=== PATIENT | male | born 1945 | race Caucasian/White ===

== ENCOUNTER 2016-09-05 14:31 | Emergency (ER) | payer OTHER ==
[~2016-09-05] VITALS: Ht 185.4 cm; Wt 41.6 kg
[~2016-09-05 14:31] MED LIST: ALBUAER19 INH; PRED1SUS3 OPL
[2016-09-05 14:37] VITALS: TEMP 36.3; Ht 185.4 cm; Wt 41.6 kg
[2016-09-05] MEDS ORDERED: SULFAMETHOXAZOLE/TRIMETHOPRIM DS 800/160MG TAB PO ONE (16:45)
[2016-09-05] MEDS ORDERED: SULF800T23 PO (17:48)
--- NOTE | 2016-09-05 17:48 | EMERGENCY ROOM VISIT NOTE ---
ED Visit Note First contact with patient: 15:46 I did evaluate and examine this patient myself. I did guide management for the patient. I agree with the PA's assessment as discussed. Please see the PAs dictation for further details. His An was replaced.
[2016-09-05 17:58] VITALS: BP 138/86; PULSE 91; O2SAT 95
[2016-09-05 17:58] LABS: URINE APPEARANCE CLOUDY (CLEAR); URINE BILIRUBIN NEG (NEG); URINE COLOR YELLOW; URINE EPITHELIAL CELL AUTO 0-5 /lpf (0-5); URINE NITRITE POS (NEG); URINE PH 6.5 (4.5-7.5); URINE SPECIFIC GRAVITY 1.008 (1.000-1.030); UROBILINOGEN NEG (NEG); ZZURINE CULT IF INDIC CATH YES
[2016-09-05 18:02] LABS: MANUAL MICROSCOPIC REQUIRED? NO; REVIEW REQ? NO
--- NOTE | 2016-09-05 19:49 | EMERGENCY ROOM VISIT NOTE ---
History First contact with patient: 16:35 Chief Complaint: URINARY SYMPTOMS Stated Complaint: UTI W/JEAN BAPTISTE CATHETER/CATHETER IS CLOGGED Nursing Triage Summary: UTI, has jean baptiste catheter due to prostate problems. States catheter is clogged due to UTI. No output. History of Present Illness The patient is a 71 year old male who presents to the Emergency Room with complaints of a blocked Jean Baptiste catheter. The patient reports a long-standing history of prostate issues, and this catheter was replaced about 3 weeks ago by the [facility]. The patient states last night he started having difficulty with drainage, and is now concerned that he has a UTI. He has not had output for the past several hours. The patient does have some suprapubic abdominal discomfort, but no other symptoms. He does not have fever or back pain. He rates his current discomfort an 8/10. Review of Systems More than 10 systems were reviewed and otherwise negative with the exception of history of present illness. Past Medical/Surgical History Medical Problems: (1) Benign hypertension (2) COPD (chronic obstructive pulmonary disease) (3) Multiple orthopedic surgeries (4) Pneumonia (5) Syncope (6) Syncope Family History None provided Social History Smoking Status: Current Every Day Smoker Alcohol Use: occasionally Marital Status: single Housing Status: lives alone Occupation Status: retired Current/Historical Medications Scheduled Aspirin (Aspirin Low Dose), 81 MG PO QD@1200 Cholecalciferol (Vitamin D 1000 Unit), 1,000 INTER.UNIT PO QD@1200 Lisinopril (Lisinopril), 5 MG PO QD@1200 Sulfamethoxazole-Trimethoprim (Bactrim Ds 800MG/160MG), 1 TAB PO BID Tiotropium [place] (Spiriva Handihaler), 1 CAP INH QAM Scheduled PRN Albuterol Hfa (Ventolin Hfa), 2 PUFFS INH QID PRN for Wheezing Allergies Coded Allergies: No Known Allergies (Verified , 08/05/16) Physical Exam Vital Signs Date Time Temp Pulse Resp B/P Pulse Ox O2 Delivery O2 Flow Rate FiO2 09/05/16 17:58 91 18 138/86 95 Room Air 09/05/16 17:15 87 16 144/96 96 Room Air 09/05/16 14:37 36.3 103 18 169/104 96 Room Air Pain Rating (0-10): 0 Physical Exam VITALS: Vitals are noted on the nurse's note and reviewed by myself. Vital signs stable. GENERAL: Well-developed, well-nourished, white male, who is in no acute distress and resting comfortably. Patient is cooperative with the examination. HEAD: Normocephalic atraumatic. HEART: Regular rate and rhythm without murmurs gallops or rubs. LUNGS: Clear to auscultation bilaterally without wheezes, rales or rhonchi. No retractions or accessory muscle use. ABDOMEN: Positive normal bowel sounds x 4. Soft with suprapubic tenderness. No rebound or guarding. No CVA tenderness. Medical Decision & Procedures Laboratory Results Test 09/05/16 17:15 Urine Color YELLOW Urine Appearance CLOUDY (CLEAR) Urine pH 6.5 (4.5-7.5) Urine Specific [place] 1.008 (1.000-1.030) Urine Protein NEG (NEG) Urine Glucose (UA) NEG (NEG) Urine Ketones NEG (NEG) Urine Occult Blood 3+ (NEG) Urine Nitrite POS (NEG) Urine Bilirubin NEG (NEG) Urine Urobilinogen NEG (NEG) Urine Leukocyte Esterase LARGE (NEG) Urine WBC (Auto) >30 /hpf (0-5) Urine RBC (Auto) >30 /hpf (0-4) Urine Hyaline Casts (Auto) 5-10 /lpf (0-5) Urine Epithelial Cells (Auto) 0-5 /lpf (0-5) Urine Bacteria (Auto) NEG (NEG) Medications Administered Medications (Trade) Dose Ordered Sig/Emy Route Start Time Stop Time Status Last Admin Dose Admin Trimethoprim/ Sulfamethoxazole (Septra Ds 800/ 160MG Tab) 1 tab NOW ONCE PO 09/05/16 16:45 09/05/16 16:46 DC 09/05/16 17:58 1 TAB ED Course Physical exam and history were performed. Nursing notes and EMR were reviewed. Patient appears to have difficulty with his catheter. The catheter has been placed for 3 weeks, and it is now occluded. I discussed options of care with the patient. We elected to perform a bladder scan, which showed greater than 200 mL of urine. The catheter was removed and replaced by nursing, and the patient tolerated this well. He had notable urine output after removal, and almost complete resolution of his pain. The patient was given Bactrim by mouth here in the department. I discussed the case with my attending physician, Dr. Jenkins, who also evaluated the patient. We feel he is stable for discharge home. I will continue the patient on Bactrim pending urine culture. Recommended the patient contact the [facility] to arrange a follow-up appointment. The patient was otherwise invited back to the ER with any new, worsening, or concerning symptoms. He voiced understanding and was pleased with plan of care. The chart was completed utilizing [employer] Speech Voice Recognition Software. Grammatical errors, random word insertions, pronoun errors, and incomplete sentences are an occasional consequence of this system due to software limitations, ambient noise, and hardware issues. Any formal questions or concerns about the content, text, or information contained within the body of this dictation should be directly addressed to the provider for clarification. . Medical Decision Differential diagnosis includes, but is not limited to: UTI, pyelonephritis, catheter malfunction, prostatitis, and others Impression Primary Impression: Urinary tract infection Additional Impression: Malfunction of indwelling urinary catheter Departure Information Dispostion Home / Self-Care Condition GOOD Prescriptions Sulfamethoxazole-Trimethoprim (Bactrim Ds 800MG/160MG) 1 Tab Tab 1 TAB PO BID for 10 Days, #20 TAB Prov: Gus Pickett PA-C 09/05/16 Forms HOME CARE DOCUMENTATION FORM, IMPORTANT VISIT INFORMATION Patient Instructions [facility] Additional Instructions You were seen and evaluated today on an emergency basis only. This is not a substitute for, or an effort to provide, complete comprehensive medical care. It is not possible to recognize and treat all injuries or illnesses in a single emergency department visit. For this reason it is recommended that you followup with the [facility] next week for ongoing care and evaluation. Trimethoprim-Sulfamethoxazole(Bactrim DS): Take one pill twice daily for 10 days for your urine infection. All antibiotics can cause diarrhea. If this occurs and you feel worse or it does not resolve in 1-2 days follow up with your doctor or return to the Emergency Department as this could be signs of serious underlying problems. Any medication can cause an allergic reaction, stop the pills immediately and return to the ER for rash, hives, breathing difficulties, or swelling. You are welcome to return to the emergency department anytime with new, worsening, or concerning symptoms. Problem Qualifiers
[2017-04-01] MEDS ORDERED: ASPI1TAB48 PO (03:07)
== END 2016-09-05 18:14 | disposition home or self-care (01) ==
LOC: C.EDB 14:33 → C.EDC 18:14
DX: N39.0 Urinary tract infection, site not specified (principal); T83.098A Other mechanical complication of other urinary catheter, initial encounter; X58.XXXA Exposure to other specified factors, initial encounter; I10 Essential (primary) hypertension; J44.9 Chronic obstructive pulmonary disease, unspecified; F17.200 Nicotine dependence, unspecified, uncomplicated; Z79.82 Long term (current) use of aspirin

== ENCOUNTER 2016-09-09 03:36 | Emergency (ER) | payer OTHER ==
[~2016-09-09] VITALS: Ht 185.4 cm; Wt 45.5 kg
[~2016-09-09 03:36] MED LIST changes: -ALBUAER19 INH; -PRED1SUS3 OPL; +SULF800T23 PO
[2016-09-09 03:41] VITALS: Ht 185.4 cm; Wt 45.5 kg
--- NOTE | 2016-09-09 03:56 | EMERGENCY ROOM VISIT NOTE ---
History Report prepared by Lia: Pamella Estrada Under the Supervision of: Dr. Mckay Leo M.D. First contact with patient: 03:48 Chief Complaint: CATHETER REPLACEMENT Stated Complaint: UTI - JEAN BAPTISTE CATH WON'T DRAIN History of Present Illness The patient is a 71 year old male who presents to the Emergency Room with complaints of Jean Baptiste catheter malfunction today. The patient currently complains of lower abdominal discomfort due to his bladder being full. The patient was in the ED a few days ago with similar symptoms and had his Jean Baptiste changed during his visit. He was put on Bactrim at that time but he states that it has not been helping the catheter clogging.He follows up with urology at the [place]. Source of History: patient Onset: today Position: other () Quality: other (urinary retention) Timing: constant Associated Symptoms: + abdominal pain Review of Systems See HPI for pertinent positives & negatives. A total of 10 systems reviewed and were otherwise negative. Past Medical & Surgical Medical Problems: (1) Benign hypertension (2) COPD (chronic obstructive pulmonary disease) (3) Multiple orthopedic surgeries (4) Pneumonia (5) Syncope (6) Syncope Family History None provided Social History Smoking Status: Current Every Day Smoker Alcohol Use: occasionally Marital Status: single Housing Status: lives alone Occupation Status: retired Current/Historical Medications Scheduled Aspirin (Aspirin Low Dose), 81 MG PO QD@1200 Cholecalciferol (Vitamin D 1000 Unit), 1,000 INTER.UNIT PO QD@1200 Ciprofloxacin Hcl (Cipro), 1 TAB PO BID Lisinopril (Lisinopril), 5 MG PO QD@1200 Sulfamethoxazole-Trimethoprim (Bactrim Ds 800MG/160MG), 1 TAB PO BID Tiotropium [place] (Spiriva Handihaler), 1 CAP INH QAM Scheduled PRN Albuterol Hfa (Ventolin Hfa), 2 PUFFS INH QID PRN for Wheezing Allergies Coded Allergies: No Known Allergies (Verified , 08/05/16) Physical Exam Vital Signs Date Time Temp Pulse Resp B/P Pulse Ox O2 Delivery O2 Flow Rate FiO2 09/09/16 04:35 85 18 136/89 95 09/09/16 03:41 99 20 159/78 94 Room Air Physical Exam GENERAL: Patient is a healthy-appearing well-nourished 71 year old male HEAD: Normocephalic atraumatic EYES: Ocular movements intact pupils equal and react to light OROPHARYNX mucous membranes are moist no exudates present no erythema or edema present NECK: Supple no nuchal rigidity CHEST: Good equal expansion LUNGS: Clear and equal to auscultation CARDIAC: Normal S1 and S2 ABDOMEN: Soft, tender to the suprapubic area, no guarding BACK: No CVA tenderness EXTREMITIES: No pain upon palpation normal muscle strength in all groups no clubbing cyanosis or edema NEURO: Patient is following commands is answering questions appropriately. Alert and oriented x3 Cranial Nerves 2-12 grossly intact Medical Decision & Procedures Laboratory Results Test 09/09/16 04:10 Urine Color YELLOW Urine Appearance CLOUDY (CLEAR) Urine pH 6.5 (4.5-7.5) Urine Specific [place] 1.005 (1.000-1.030) Urine Protein NEG (NEG) Urine Glucose (UA) NEG (NEG) Urine Ketones NEG (NEG) Urine Occult Blood NEG (NEG) Urine Nitrite NEG (NEG) Urine Bilirubin NEG (NEG) Urine Urobilinogen NEG (NEG) Urine Leukocyte Esterase LARGE (NEG) Urine WBC (Auto) >30 /hpf (0-5) Urine RBC (Auto) 0-4 /hpf (0-4) Urine Hyaline Casts (Auto) 1-5 /lpf (0-5) Urine Epithelial Cells (Auto) >30 /lpf (0-5) Urine Bacteria (Auto) NEG (NEG) Urine Renal Epithelial Cells /lpf (0-5) Labs reviewed by ED physician. Medications Administered Medications (Trade) Dose Ordered Sig/Emy Route Start Time Stop Time Status Last Admin Dose Admin Ciprofloxacin (Cipro Tab) 500 mg NOW STAT PO 09/09/16 04:10 09/09/16 04:11 DC 09/09/16 04:18 500 MG ED Course 0405: Past medical records reviewed. The patient was evaluated in room B3. A complete history and physical examination was performed. 0410: Ordered Cipro Tab 500 mg PO. 0420: Upon reexamination the patient is feeling much better. I discussed results and treatment plan with the patient. He verbalizes agreement and understanding. The patient is ready for discharge. Medical Decision This is a 71-year-old male who presents emergency department complaining of blocked Jean Baptiste. The patient is following up with urology in [place]. He also reports that Cipro is a better medication for him therefore the patient was placed on Cipro. His Jean Baptiste catheter was changed out and he had good drainage of urine. Patient was in agreement with the treatment plan. Impression Primary Impression: Complication of catheter Scribe Attestation The scribe's documentation has been prepared under my direction and personally reviewed by me in its entirety. I confirm that the note above accurately reflects all work, treatment, procedures, and medical decision making performed by me. Departure Information Dispostion Home / Self-Care Prescriptions Ciprofloxacin Hcl (CIPRO) 500 Mg Tab 1 TAB PO BID for 14 Days, #28 TAB Prov: Mckay Leo MD 09/09/16 Referrals Tyrone Kennedy D.O. (PCP) Patient Instructions ED Catheter Care Jean Baptiste, ED Retention Urinary Male, My [facility] Additional Instructions Follow up with urology Culture results are usually available in approx 48 hours You have been examined and treated today on an emergency basis only. This is not a substitute for, or an effort to provide, complete comprehensive medical care. It is impossible to recognize and treat all injuries or illnesses in a single emergency department visit. It is therefore important that you follow up closely with Dr Kennedy. Call as soon as possible for an appointment. Thank you for your time and consideration. I look forward to speaking with you again soon. Please don't hesitate to call us if you have any questions. Problem Qualifiers Primary Impression: Complication of catheter Encounter type: sequela Qualified Codes: T85.9XXS - Unspecified complication of internal prosthetic device, implant and graft, sequela
[2016-09-09] MEDS ORDERED: CIPROFLOXACIN 500 MG TAB PO STA (04:10)
[2016-09-09] MEDS ORDERED: CIPR-255 PO (04:11)
[2016-09-09 04:35] VITALS: BP 136/89; PULSE 85; O2SAT 95
[2016-09-09 04:35] LABS: URINE APPEARANCE CLOUDY (CLEAR); URINE BILIRUBIN NEG (NEG); URINE COLOR YELLOW; URINE EPITHELIAL CELL AUTO >30 /lpf (0-5); URINE NITRITE NEG (NEG); URINE PH 6.5 (4.5-7.5); URINE SPECIFIC GRAVITY 1.005 (1.000-1.030); UROBILINOGEN NEG (NEG)
[2016-09-09 04:36] LABS: MANUAL MICROSCOPIC REQUIRED? NO; REVIEW REQ? YES
[2017-04-01] MEDS ORDERED: ASPI1TAB48 PO (03:07)
== END 2016-09-09 04:36 | disposition home or self-care (01) ==
LOC: C.EDB 03:37
DX: T83.091A Other mechanical complication of indwelling urethral catheter, initial encounter (principal); Y84.6 Urinary catheterization as the cause of abnormal reaction of the patient, or of later complication, without mention of misadventure at the time of the procedure; I10 Essential (primary) hypertension; J44.9 Chronic obstructive pulmonary disease, unspecified; F17.210 Nicotine dependence, cigarettes, uncomplicated; Z79.2 Long term (current) use of antibiotics; Z79.82 Long term (current) use of aspirin; Z79.899 Other long term (current) drug therapy

== ENCOUNTER 2016-09-25 23:47 | Emergency (ER) | payer OTHER ==
[~2016-09-25] VITALS: Ht 185.4 cm; Wt 50.7 kg
[~2016-09-25 23:47] MED LIST changes: +CIPR-255 PO; -SULF800T23 PO
[2016-09-25 23:49] VITALS: TEMP 36.3; Ht 185.4 cm; Wt 50.7 kg
--- NOTE | 2016-09-26 00:17 | EMERGENCY ROOM VISIT NOTE ---
History Report prepared by Lia: Ricardo Lloyd Under the Supervision of: Dr. Jill Garcia D.O. First contact with patient: 23:53 Chief Complaint: CATHETER REPLACEMENT Stated Complaint: JEAN BAPTISTE CATH CLOGGED History of Present Illness The patient is a 71 year old male who presents to the Emergency Room with complaints of a blocked catheter since about 1500 today. The patient states he has a history of blocked catheters. The patient states that the catheter has been put into place due to his prostate. He states that he has not felt sick recently, and he is not currently on antibiotics. The patient states that he has had infections in the past. Source of History: patient Onset: 1500 Position: other (catheter) Quality: other (blocked) Review of Systems See HPI for pertinent positives & negatives. A total of 6 systems reviewed and were otherwise negative. Past Medical & Surgical Medical Problems: (1) Benign hypertension (2) COPD (chronic obstructive pulmonary disease) (3) Multiple orthopedic surgeries (4) Pneumonia (5) Syncope (6) Syncope Family History None provided Social History Smoking Status: Current Every Day Smoker Alcohol Use: occasionally Marital Status: single Housing Status: lives alone Occupation Status: retired Current/Historical Medications Scheduled Aspirin (Aspirin Low Dose), 81 MG PO QD@1200 Cholecalciferol (Vitamin D 1000 Unit), 1,000 INTER.UNIT PO QD@1200 Ciprofloxacin Hcl (Cipro), 1 TAB PO BID Lisinopril (Lisinopril), 5 MG PO QD@1200 Sulfamethoxazole-Trimethoprim (Bactrim Ds 800MG/160MG), 1 TAB PO BID Tiotropium [place] (Spiriva Handihaler), 1 CAP INH QAM Scheduled PRN Albuterol Hfa (Ventolin Hfa), 2 PUFFS INH QID PRN for Wheezing Allergies Coded Allergies: No Known Allergies (Verified , 08/05/16) Physical Exam Vital Signs Date Time Temp Pulse Resp B/P Pulse Ox O2 Delivery O2 Flow Rate FiO2 09/26/16 00:47 71 18 138/86 93 Room Air 09/25/16 23:49 36.3 103 20 182/97 94 Physical Exam Neck: Supple; no cervical lymphadenopathy Heart: Regular rate and rhythm. There is a normal S1 and S2 with no murmurs, clicks, or gallops appreciated. Lungs: Diminished breath sounds in all lung ocasio Abdomen: Normal bowel sounds. There are no palpable pulsatile masses or hepatosplenomegaly. There is no guarding, rigidity, or rebound noted. Extremities: No evidence of cyanosis, clubbing, or edema. There are easily palpable peripheral pulses. Skin: warm and dry with good turgor and no rashes. Medical Decision & Procedures Laboratory Results Test 09/26/16 00:15 Urine Color YELLOW Urine Appearance CLOUDY (CLEAR) Urine pH 8.0 (4.5-7.5) Urine Specific [place] 1.008 (1.000-1.030) Urine Protein NEG (NEG) Urine Glucose (UA) NEG (NEG) Urine Ketones NEG (NEG) Urine Occult Blood 2+ (NEG) Urine Nitrite NEG (NEG) Urine Bilirubin NEG (NEG) Urine Urobilinogen NEG (NEG) Urine Leukocyte Esterase LARGE (NEG) Urine WBC (Auto) >30 /hpf (0-5) Urine RBC (Auto) >30 /hpf (0-4) Urine Hyaline Casts (Auto) 10-30 /lpf (0-5) Urine Epithelial Cells (Auto) >30 /lpf (0-5) Urine Bacteria (Auto) NEG (NEG) Urine Renal Epithelial Cells /lpf (0-5) Laboratory results per my review. Medications Administered Medications (Trade) Dose Ordered Sig/Emy Route Start Time Stop Time Status Last Admin Dose Admin Trimethoprim/ Sulfamethoxazole (Septra Ds 800/ 160MG Tab) 1 tab NOW STAT PO 09/26/16 00:46 09/26/16 00:47 DC 09/26/16 00:46 1 TAB Procedure Septra Ds 800/ 160mg Tab ED Course 2353: Past medical records reviewed. The patient was evaluated in room C7. A complete history and physical exam was performed. Multiple previous urinary cultures were reviewed. Nursing staff was able to change the patient's Jean Baptiste catheter and obtain a urinalysis. This appeared to be infected. 0046: Septra Ds 800/ 160mg Tab 1 tab PO 0113: Upon reevaluation, he was feeling better. I discussed findings and results with him. He verbalized agreement of the treatment plan. He was discharged home. Medical Decision This is a 71-year-old male patient who presents to the emergency department with a blocked Jean Baptiste catheter. Labs: urinalysis showed cloudy yellow urine, 2+ blood, greater than 3 white blood cell count, greater than 30 red blood cell count, large leukocyte esterase The patient has urinary retention secondary to prostate hypertrophy. He has had multiple previous obstructions to his urinary catheter with associated UTI. Urinalysis appears infected and the urine will go for culture. A new Jean Baptiste catheter was placed. The patient will start taking Bactrim Impression Primary Impression: Complication, blocked Jean Baptiste catheter Additional Impression: Urinary tract infection Scribe Attestation The scribe's documentation has been prepared under my direction and personally reviewed by me in its entirety. I confirm that the note above accurately reflects all work, treatment, procedures, and medical decision making performed by me. Departure Information Dispostion Home / Self-Care Prescriptions Sulfamethoxazole-Trimethoprim (Bactrim Ds 800MG/160MG) 1 Tab Tab 1 TAB PO BID, #20 TAB Prov: Jill Garcia D.O. 09/26/16 Referrals Tyrone Kennedy D.O. (PCP) Forms HOME CARE DOCUMENTATION FORM, IMPORTANT VISIT INFORMATION Patient Instructions My [facility] Additional Instructions Rest. Take plenty of clear liquids Bactrim - 1 tab. every 12 hours Problem Qualifiers
[2016-09-26 00:34] LABS: URINE APPEARANCE CLOUDY (CLEAR); URINE BILIRUBIN NEG (NEG); URINE COLOR YELLOW; URINE EPITHELIAL CELL AUTO >30 /lpf (0-5); URINE NITRITE NEG (NEG); URINE SPECIFIC GRAVITY 1.008 (1.000-1.030); UROBILINOGEN NEG (NEG)
[2016-09-26 00:43] LABS: MANUAL MICROSCOPIC REQUIRED? NO; REVIEW REQ? YES
[2016-09-26 00:44] LABS: SULFASALICYLIC ACID NEG (NEG)
[2016-09-26] MEDS ORDERED: SULFAMETHOXAZOLE/TRIMETHOPRIM DS 800/160MG TAB PO STA (00:46)
[2016-09-26 00:47] VITALS: BP 138/86; PULSE 71; O2SAT 93
[2016-09-26] MEDS ORDERED: SULF800T23 PO (01:05)
[2017-04-01] MEDS ORDERED: ASPI1TAB48 PO (03:07)
== END 2016-09-26 01:10 | disposition home or self-care (01) ==
LOC: C.EDB 23:48 → C.EDC 09-26 01:10
DX: T83.021A Displacement of indwelling urethral catheter, initial encounter (principal); X58.XXXA Exposure to other specified factors, initial encounter; N40.1 Benign prostatic hyperplasia with lower urinary tract symptoms; R33.8 Other retention of urine; N39.0 Urinary tract infection, site not specified; I10 Essential (primary) hypertension; J44.9 Chronic obstructive pulmonary disease, unspecified; F17.200 Nicotine dependence, unspecified, uncomplicated; Z79.82 Long term (current) use of aspirin; Z79.899 Other long term (current) drug therapy

== ENCOUNTER 2016-10-27 11:30 | Emergency (ER) | payer OTHER ==
[~2016-10-27] VITALS: Ht 185.4 cm; Wt 49.1 kg
[2016-10-27 11:37] VITALS: TEMP 36.3; Ht 185.4 cm; Wt 49.1 kg
[2016-10-27] MEDS ORDERED: ALBUTEROL HFA 8 GM INHALER INH ONE (12:00)
[2016-10-27] MEDS ORDERED: NITR100C6 PO (12:02)
[2016-10-27 13:06] VITALS: BP 138/91; PULSE 89; O2SAT 94
--- NOTE | 2016-10-27 14:40 | EMERGENCY ROOM VISIT NOTE ---
History Report prepared by Lia: Fatmata Mitchell Under the Supervision of: Dr. Jill Garcia D.O. First contact with patient: 11:43 Chief Complaint: UNABLE TO VOID Stated Complaint: JEAN BAPTISTE CATH,WON'T DRAIN Nursing Triage Summary: Pt presents with indwelling jean baptiste that he states has been in for a couple weeks. States last drained collection bag at 1600 yesterday, has not drained much since then. History of Present Illness The patient is a 71 year old male who presents to the Emergency Room with complaints of being unable to void. He has a catheter in place for a prostate problem. He believes that it has become blocked. He has been on Macrobid for a couple weeks for a long-term infection. He is also experiencing some SOB from being unable to void. He states that he needs a refill on his albuterol inhaler. Source of History: patient Position: other (jean baptiste catheter) Quality: other (blocked) Associated Symptoms: + SOB Review of Systems Jean Baptiste catheter blocked. The patient developed hematuria yesterday. He has had previous episodes of hematuria and is scheduled for a cystoscopy with his urologist next week. Past Medical & Surgical Medical Problems: (1) Benign hypertension (2) COPD (chronic obstructive pulmonary disease) (3) Multiple orthopedic surgeries (4) Pneumonia (5) Syncope (6) Syncope Family History None provided Social History Smoking Status: Current Every Day Smoker Alcohol Use: occasionally Marital Status: single Housing Status: lives alone Occupation Status: retired Current/Historical Medications Scheduled Aspirin (Aspirin Low Dose), 81 MG PO QD@1200 Cholecalciferol (Vitamin D 1000 Unit), 1,000 INTER.UNIT PO QD@1200 Lisinopril (Lisinopril), 5 MG PO QD@1200 Nitrofurantoin Monohyd Macro (Nitrofurantoin Monohydrat), 1 CAP PO BID Tiotropium [place] (Spiriva Handihaler), 1 CAP INH QAM Scheduled PRN Albuterol Hfa (Ventolin Hfa), 2 PUFFS INH QID PRN for Wheezing Allergies Coded Allergies: No Known Allergies (Verified , 10/27/16) Physical Exam Vital Signs Date Time Temp Pulse Resp B/P Pulse Ox O2 Delivery O2 Flow Rate FiO2 10/27/16 13:06 89 16 138/91 94 10/27/16 11:37 36.3 103 18 142/91 93 Room Air Physical Exam Gen.: The patient appears slightly tachypneic as he is having moderate suprapubic abdominal pain from bladder distention. Heart: Regular rate and rhythm with no murmurs Lungs: Diminished breath sounds in all lung ocasio ABDOMEN: distended and tender to touch. Medical Decision & Procedures Medications Administered Medications (Trade) Dose Ordered Sig/Emy Route Start Time Stop Time Status Last Admin Dose Admin Albuterol (Ventolin Hfa Inhaler) 2 puffs NOW ONCE INH 10/27/16 12:00 10/27/16 12:01 DC 10/27/16 12:10 2 PUFFS Procedure Medications: Albuterol inhaler to go ED Course 1144: The patient was evaluated in room B10. Nursing staff did a bladder scan. Nursing staff replaced the Jean Baptiste catheter. He asked for an albuterol inhaler because he is running out and he will not be able to obtain one from the [place] until next week. 1212: I reevaluated the patient. The nurses put the new catheter in and got 800 ml of bloody urine out. They will try to irrigate the catheter to get the clots and blood out. He reports he frequently has bloody urine and this episode started yesterday. He is scheduled to have a cystoscopy in 1 week with urology. 1237: I reevaluated the patient. Irrigation of the catheter has made the urine more clear. I discussed the results and treatment plan with him. He will be discharged home. He is to continue the Macrobid. He was told to return to the emergency department if symptoms worsen or the catheter becomes blocked again. Medical Decision This is a 71-year-old male patient with history of prostate enlargement with an indwelling Jean Baptiste catheter. He presents here today with blockage to the catheter and hematuria. The patient has been on Macrobid for the past couple of weeks for urinary tract infection. He is scheduled to have cystoscopy next week with his urologist at the [place]. Impression Primary Impression: Hematuria Additional Impression: Complication, blocked Jean Baptiste catheter Scribe Attestation The scribe's documentation has been prepared under my direction and personally reviewed by me in its entirety. I confirm that the note above accurately reflects all work, treatment, procedures, and medical decision making performed by me. Departure Information Dispostion Home / Self-Care Referrals Tyrone Kennedy D.O. (PCP) Forms HOME CARE DOCUMENTATION FORM, IMPORTANT VISIT INFORMATION, WORK / SCHOOL INSTRUCTIONS Patient Instructions My [facility] Additional Instructions Follow up with your Urologist for cystoscopy Return to the ER if catheter becomes blocked again. Problem Qualifiers
[2017-04-01] MEDS ORDERED: ASPI1TAB48 PO (03:07)
== END 2016-10-27 13:08 | disposition home or self-care (01) ==
LOC: C.EDB 11:31
DX: T83.091A Other mechanical complication of indwelling urethral catheter, initial encounter (principal); X58.XXXA Exposure to other specified factors, initial encounter; R31.9 Hematuria, unspecified; I10 Essential (primary) hypertension; J44.9 Chronic obstructive pulmonary disease, unspecified; F17.200 Nicotine dependence, unspecified, uncomplicated; Z79.82 Long term (current) use of aspirin; Z79.899 Other long term (current) drug therapy

== ENCOUNTER 2016-12-02 10:08 | Emergency (ER) | payer OTHER ==
[~2016-12-02] VITALS: Ht 185.4 cm; Wt 50.5 kg
[~2016-12-02 10:08] MED LIST changes: -CIPR-255 PO; +NITR100C6 PO
[2016-12-02 10:12] VITALS: TEMP 36.8; Ht 185.4 cm; Wt 50.5 kg
[2016-12-02] MEDS ORDERED: ALBUTEROL HFA 8 GM INHALER INH STA (10:22)
--- NOTE | 2016-12-02 10:29 | EMERGENCY ROOM VISIT NOTE ---
History Report prepared by Lia: Pamella Estrada Under the Supervision of: Dr. Rc Marino M.D. First contact with patient: 10:18 Chief Complaint: OTHER COMPLAINT Stated Complaint: JEAN BAPTISTE CATHETER CLOGGED History of Present Illness The patient is a 71 year old male who presents to the Emergency Room with complaints of a Jean Baptiste catheter malfunction. The patient has had Jean Baptiste catheters placed on and off for the past year and a half due to prostate issues. Last night, the patient emptied his leg bag at around 2100. Since then, he has had only a small amount of drainage from the catheter. Usually, he would have much more urine in the bag. He has been drinking fluids. Denies back pain. He does report some breathing difficulties which is secondary to COPD. Source of History: patient Onset: 2100 last night Position: other () Quality: other (Jean Baptiste malfunction) Timing: constant Note: Other symptoms: breathing difficulties Review of Systems All systems have been listed, reviewed, and are negative other than those previously mentioned. Please see Additional Medical History Sheet. Past Medical & Surgical Medical Problems: (1) Benign hypertension (2) COPD (chronic obstructive pulmonary disease) (3) Multiple orthopedic surgeries (4) Pneumonia (5) Syncope (6) Syncope Family History None provided Social History Smoking Status: Current Every Day Smoker Alcohol Use: occasionally Marital Status: single Housing Status: lives alone Occupation Status: retired Current/Historical Medications Scheduled Aspirin (Aspirin Low Dose), 81 MG PO QD@1200 Cholecalciferol (Vitamin D 1000 Unit), 1,000 INTER.UNIT PO QD@1200 Lisinopril (Lisinopril), 5 MG PO QD@1200 Nitrofurantoin Monohyd Macro (Nitrofurantoin Monohydrat), 1 CAP PO HS Sulfa/Trimethoprim (Bactrim Ds 800MG/160MG), 1 TAB PO BID Tiotropium [place] (Spiriva Handihaler), 1 CAP INH QAM Scheduled PRN Albuterol Hfa (Ventolin Hfa), 2 PUFFS INH QID PRN for Wheezing Allergies Coded Allergies: No Known Allergies (Verified , 12/02/16) Physical Exam Vital Signs Date Time Temp Pulse Resp B/P Pulse Ox O2 Delivery O2 Flow Rate FiO2 12/02/16 13:30 89 20 123/88 94 12/02/16 12:09 86 20 155/98 95 Room Air 12/02/16 10:42 98 12/02/16 10:35 96 Room Air 12/02/16 10:12 36.8 85 18 169/91 95 Room Air Physical Exam GENERAL: Patient awake, alert, oriented x 3. Patient follows commands. Patient does not appear toxic. Patient is adequately hydrated and well- nourished. SKIN: No erythema, pallor, cyanosis or rash HEENT: Normal head, pupils equal, reactive to light and accommodation. Ears normal. LUNGS: Clear to auscultation. No wheezes, no rales, no rhonchi. Patient has some labored breathing. HEART: No murmurs. No gallops. No rubs ABDOMEN: Large right inguinal hernia. No masses, no rebound, no hepatomegaly or splenomegaly. : Catheter appears to be in place. EXTREMITIES: No signs of trauma. No pedal or pretibial edema. No calf or thigh tenderness. NEUROLOGIC: Cranial nerves II-XII within normal limits. No gross motor sensory function deficits. Medical Decision & Procedures Laboratory Results 12/02/16 10:40 12/02/16 10:40 Test 12/02/16 10:40 12/02/16 11:55 Red Blood Count 4.76 M/uL (4.7-6.1) Mean Corpuscular Volume 92.2 fL (80-100) Mean Corpuscular Hemoglobin 30.0 pg (25-34) Mean Corpuscular Hemoglobin Concent 32.6 g/dl (32-36) RDW Standard Deviation 47.3 fL (36.4-46.3) RDW Coefficient of Variation 13.9 % (11.5-14.5) Mean Platelet Volume 9.5 fL (7.4-10.4) Anion Gap 4.0 mmol/L (3-11) Est Creatinine Clear Calc Drug Dose 58.6 ml/min Estimated GFR () 103.0 Estimated GFR (Non- 88.9 BUN/Creatinine Ratio 16.9 (10-20) Calcium Level 8.7 mg/dl (8.5-10.1) Urine Color DK YELLOW Urine Appearance CLEAR (CLEAR) Urine pH 7.0 (4.5-7.5) Urine Specific [place] 1.015 (1.000-1.030) Urine Protein NEG (NEG) Urine Glucose (UA) NEG (NEG) Urine Ketones NEG (NEG) Urine Occult Blood 3+ (NEG) Urine Nitrite NEG (NEG) Urine Bilirubin NEG (NEG) Urine Urobilinogen NEG (NEG) Urine Leukocyte Esterase MODERATE (NEG) Urine WBC (Auto) 10-30 /hpf (0-5) Urine RBC (Auto) >30 /hpf (0-4) Urine Hyaline Casts (Auto) 1-5 /lpf (0-5) Urine Epithelial Cells (Auto) >30 /lpf (0-5) Urine Bacteria (Auto) NEG (NEG) Urine Renal Epithelial Cells 0-5 /lpf (0-5) Laboratory results as stated above per my review. Medications Administered Medications (Trade) Dose Ordered Sig/Emy Route Start Time Stop Time Status Last Admin Dose Admin Albuterol (Ventolin Hfa Inhaler) 2 puffs NOW STAT INH 12/02/16 10:22 12/02/16 10:24 DC 12/02/16 10:34 2 PUFFS ED Course 1019: The patient was evaluated in room B8. A complete history and physical examination was performed. 1022: Ordered Albuterol 2 puffs INH. 1306: Upon reevaluation, the patient appeared to have improvement of his symptoms.He had his catheter replaced. I discussed today's findings with the patient. He verbalized agreement of the treatment plan. The patient was discharged home. Medical Decision Nurses notes reviewed. Medical history sheet reviewed. Differential diagnosis includes but is not limited to: COPD with exacerbation, Jean Baptiste catheter obstruction, UTI. The patient was slightly short of breath from his COPD. He was given an albuterol inhaler which helped. In the meantime we attempted to unblock the Jean Baptiste catheter with irrigation which was unsuccessful and therefore a new catheter was placed without difficulty. Urinalysis is consistent with a urinary tract infection. The patient was given a prescription for Bactrim. The patient felt significantly better and was discharged. Impression Primary Impression: Complication, blocked Jean Baptiste catheter Additional Impression: Urinary tract infection Scribe Attestation The scribe's documentation has been prepared under my direction and personally reviewed by me in its entirety. I confirm that the note above accurately reflects all work, treatment, procedures, and medical decision making performed by me. Departure Information Dispostion Home / Self-Care Prescriptions Sulfa/Trimethoprim (Bactrim Ds 800MG/160MG) Tab 1 TAB PO BID, #20 TAB Prov: Rc Marino M.D. 12/02/16 Referrals Tyrone Kennedy D.O. (PCP) Patient Instructions My [facility] Additional Instructions Continue all of your current medications as prescribed. 1 Bactrim twice a day for 10 days. Follow up with your family doctor within 2 weeks. Problem Qualifiers
[2016-12-02 10:35] VITALS: O2SAT 96
[2016-12-02 11:06] LABS: HEMATOCRIT 43.9 % (42-52); MEAN CELL VOLUME 92.2 fL (80-100); MEAN CORPUSCULAR HGB CONC 32.6 g/dl (32-36); MEAN PLATELET VOLUME 9.5 fL (7.4-10.4); PLATELET COUNT 317 K/uL (130-400); RED BLOOD COUNT 4.76 M/uL (4.7-6.1); WHITE BLOOD COUNT 7.68 K/uL (4.8-10.8)
[2016-12-02 11:27] LABS: BUN/CREATININE RATIO 16.9 (10-20); CALCIUM 8.7 mg/dl (8.5-10.1); CREATININE 0.85 mg/dl (0.60-1.40); POTASSIUM 4.1 mmol/L (3.5-5.1)
[2016-12-02 12:24] LABS: URINE APPEARANCE CLEAR (CLEAR); URINE BILIRUBIN NEG (NEG); URINE COLOR DK YELLOW; URINE EPITHELIAL CELL AUTO >30 /lpf (0-5); URINE NITRITE NEG (NEG); URINE SPECIFIC GRAVITY 1.015 (1.000-1.030); UROBILINOGEN NEG (NEG); ZZURINE CULT IF INDIC CATH YES
[2016-12-02 12:26] LABS: MANUAL MICROSCOPIC REQUIRED? NO; REVIEW REQ? YES
[2016-12-02] MEDS ORDERED: SULF800T23 PO (13:14)
[2016-12-02 13:30] VITALS: BP 123/88; PULSE 89; O2SAT 94
[2017-04-01] MEDS ORDERED: ASPI1TAB48 PO (03:07)
[2017-04-01] MEDS ORDERED: NITR100C2 PO (16:53)
== END 2016-12-02 13:31 | disposition home or self-care (01) ==
LOC: C.EDB 10:09
DX: T83.098A Other mechanical complication of other urinary catheter, initial encounter (principal); X58.XXXA Exposure to other specified factors, initial encounter; N39.0 Urinary tract infection, site not specified; I10 Essential (primary) hypertension; J44.9 Chronic obstructive pulmonary disease, unspecified; F17.200 Nicotine dependence, unspecified, uncomplicated; Z98.890 Other specified postprocedural states; Z79.82 Long term (current) use of aspirin; Z79.899 Other long term (current) drug therapy

== ENCOUNTER 2016-12-21 16:17 | Emergency (ER) | payer OTHER ==
[~2016-12-21] VITALS: Ht 185.4 cm; Wt 48.9 kg
[~2016-12-21 16:17] MED LIST changes: +SULF800T23 PO
[2016-12-21 16:27] VITALS: TEMP 36.4; Ht 185.4 cm; Wt 48.9 kg
[2016-12-21 17:33] LABS: URINE APPEARANCE CLOUDY (CLEAR); URINE BILIRUBIN NEG (NEG); URINE COLOR DK YELLOW; URINE NITRITE NEG (NEG); URINE SPECIFIC GRAVITY 1.014 (1.000-1.030); UROBILINOGEN NEG (NEG); ZZURINE CULT IF INDIC CATH YES
[2016-12-21 17:35] LABS: MANUAL MICROSCOPIC REQUIRED? NO; REVIEW REQ? YES
[2016-12-21] MEDS ORDERED: CEFTRIAXONE SOD INJ 1 GM ADDVIAL IV STA (17:46)
[2016-12-21] MEDS ORDERED: AMOXICILLIN 250 MG CAP PO STA (18:14)
[2016-12-21] MEDS ORDERED: AMOX500C3 PO (18:17)
--- NOTE | 2016-12-21 18:20 | EMERGENCY ROOM VISIT NOTE ---
History Report prepared by Lia: Deandre aSnchez Under the Supervision of: Dr. Mckay Márquez D.O. First contact with patient: 16:36 Chief Complaint: URINARY SYMPTOMS Stated Complaint: JEAN BAPTISTE CATH CLOGGED History of Present Illness The patient is a 71 year old male who presents to the Emergency Room with complaints of a constant clogged Jean Baptiste catheter beginning several days prior to arrival. He currently rates his discomfort as a 5/10 in severity. The patient states he has the urgency to urinate but it will not drain. He notes he has had a catheter for months, but he had this one placed two weeks ago. The patient states he has prostate problems and has an appointment with his urologist at the [facility] in February. 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 A total of 10 systems reviewed and were otherwise negative. Past Medical & Surgical Medical Problems: (1) Benign hypertension (2) COPD (chronic obstructive pulmonary disease) (3) Multiple orthopedic surgeries (4) Pneumonia (5) Syncope (6) Syncope Family History None provided Social History Smoking Status: Current Every Day Smoker Alcohol Use: occasionally Marital Status: single Housing Status: lives alone Occupation Status: retired Current/Historical Medications Scheduled Amoxicillin (Amoxil), 500 MG PO TID Aspirin (Aspirin Low Dose), 81 MG PO QD@1200 Cholecalciferol (Vitamin D 1000 Unit), 1,000 INTER.UNIT PO QD@1200 Lisinopril (Lisinopril), 5 MG PO QD@1200 Nitrofurantoin Macrocrystal (Nitrofurantoin Macrocryst), 100 MG PO HS Tiotropium [place] (Spiriva Handihaler), 1 CAP INH QAM Scheduled PRN Albuterol Hfa (Ventolin Hfa), 2 PUFFS INH QID PRN for Wheezing Allergies Coded Allergies: No Known Allergies (Verified , 12/02/16) Physical Exam Vital Signs Date Time Temp Pulse Resp B/P Pulse Ox O2 Delivery O2 Flow Rate FiO2 12/21/16 16:27 36.4 94 24 154/100 95 Room Air Physical Exam CONSTITUTIONAL/VITAL SIGNS: Reviewed / noted above. GENERAL: Non-toxic in appearance. INTEGUMENTARY: Warm, dry, and [place]. HEAD: Normocephalic. EYES: without scleral icterus or trauma. ENT/OROPHARYNX: clear and moist. LYMPHADENOPATHY/NECK: Is supple without lymphadenopathy or meningismus. RESPIRATORY: Lungs clear and equal. CARDIOVASCULAR: Regular rate and rhythm. GI/ABDOMEN: Bladder distension noted. Tenderness over the suprapubic area. Soft. No rebound or guarding. Normal bowel sounds. : Jean Baptiste catheter in place but does not appear to be draining. EXTREMITIES: Warm and well perfused. BACK: No CVA tenderness. NEUROLOGICAL: Intact without focal deficits. PSYCHIATRIC: normal affect. MUSCULOSKELETAL: Normally developed with good muscle tone. Medical Decision & Procedures Laboratory Results Test 12/21/16 17:13 Urine Color DK YELLOW Urine Appearance CLOUDY (CLEAR) Urine pH 6.0 (4.5-7.5) Urine Specific [place] 1.014 (1.000-1.030) Urine Protein 1+ (NEG) Urine Glucose (UA) NEG (NEG) Urine Ketones NEG (NEG) Urine Occult Blood 3+ (NEG) Urine Nitrite NEG (NEG) Urine Bilirubin NEG (NEG) Urine Urobilinogen NEG (NEG) Urine Leukocyte Esterase MODERATE (NEG) Urine WBC (Auto) 10-30 /hpf (0-5) Urine RBC (Auto) >30 /hpf (0-4) Urine Hyaline Casts (Auto) 1-5 /lpf (0-5) Urine Epithelial Cells (Auto) 5-10 /lpf (0-5) Urine Bacteria (Auto) NEG (NEG) Urine Yeast (Auto) BUDDING (NONE PRSENT) Laboratory results as stated above per my review. ED Course 164: Previous medical records were reviewed. The patient was evaluated in room B7. A complete history and physical examination was performed. 1745: Ordered Rocephin Inj 1 gm IV. 1813: Ordered Amoxicillin 500 mg PO. 1819: On reevaluation, the patient is doing well. I discussed the results and findings with the patient. He verbalized agreement of the treatment plan. The patient was discharged home. Medical Decision The differential diagnoses include but are not limited to: Jean Baptiste catheter malfunction, kidney failure, urinary tract infection. This is a 71-year-old male who presents to the ED with a chief complaint of clogged Jean Baptiste catheter. The patient states that he has an indwelling Jean Baptiste catheter for months. This last one was placed 2 weeks ago. He states that he feels like he has to urinate and nothing is coming out of his Jean Baptiste catheter. His symptoms started today. His exam reveals distended bladder. He has no urine coming out of the Jean Baptiste catheter. The catheter was placed. The bladder was drained. Urine suggest a possible infection. He was given amoxicillin for 3 days. He was discharged. Impression Primary Impression: Malfunction of indwelling urinary catheter Additional Impression: Urinary tract infection Scribe Attestation The scribe's documentation has been prepared under my direction and personally reviewed by me in its entirety. I confirm that the note above accurately reflects all work, treatment, procedures, and medical decision making performed by me. Departure Information Dispostion Home / Self-Care Prescriptions Amoxicillin (AMOXIL) 500 Mg Cap 500 MG PO TID, #9 CAP Prov: Mckay Márquez D.O. 12/21/16 Referrals No Doctor, Assigned (PCP) Forms HOME CARE DOCUMENTATION FORM, IMPORTANT VISIT INFORMATION Patient Instructions My [facility] Additional Instructions Follow-up with your doctor for further care and evaluation in 1-2 days as needed . Return to the emergency department for worsening or new symptoms or any concerns. You have been examined and treated today on an emergency basis only. This is not a substitute for, or an effort to provide, complete comprehensive medical care. It is impossible to recognize and treat all injuries or illnesses in a single emergency department visit. It is therefore important that you follow up closely with your doctor. Call as soon as possible for an appointment. Amoxicillin as prescribed for 3 days. Problem Qualifiers
[2016-12-21] MEDS ORDERED: ALBUTEROL HFA 8 GM INHALER INH ONE (18:54)
[2016-12-21 18:58] VITALS: BP 144/93; PULSE 82; O2SAT 95
--- NOTE | 2016-12-23 07:21 | EDITING REQUIRED CODING QUERY ---
CODING QUERY Dr. Márquez, To promote full compliance with coding requirements relating to patient care, provider participation is requested in all cases of striper spray gun uncertainty. Please assist us with the question(s) below: Coding Question(s): Patient has Malfunction of Indwelling Urinary Catheter and UTI. Please clarify below: ( ) UTI, NOS (x ) UTI due to Indwelling Urinary Catheter ( ) Other Please Explain: Physician's Response(s): Thank you Nathan Andrews Principal Diagnosis: "_that condition established after study, to be chiefly responsible for occasioning the admission of the patient to the hospital for care." Co-Existing Principal Diagnosis: "_when two or more diagnoses equally meet the criteria for principal diagnosis as determined by the circumstances of admission, diagnostic work up, and/or therapy provided, and the Alphabetic Index, Tabular List, or another coding guideline does not provide sequencing direction, any one of the diagnoses may be sequenced first." "When the physician has documented what appears to be a current diagnosis in the body of the record, but has not included the diagnosis in the final diagnostic statement, the physician should be asked whether the diagnosis should be added." (Source Coding Clinic 2 QTR90. p3-4)
[2017-04-01] MEDS ORDERED: ASPI1TAB48 PO (03:07)
[2017-04-01] MEDS ORDERED: NITR100C2 PO (16:53)
== END 2016-12-21 18:58 | disposition home or self-care (01) ==
LOC: C.EDB 16:18
DX: T83.091A Other mechanical complication of indwelling urethral catheter, initial encounter (principal); T83.511A Infection and inflammatory reaction due to indwelling urethral catheter, initial encounter; N39.0 Urinary tract infection, site not specified; Y84.6 Urinary catheterization as the cause of abnormal reaction of the patient, or of later complication, without mention of misadventure at the time of the procedure; N32.89 Other specified disorders of bladder; I10 Essential (primary) hypertension; J44.9 Chronic obstructive pulmonary disease, unspecified; F17.200 Nicotine dependence, unspecified, uncomplicated; Z87.01 Personal history of pneumonia (recurrent); Z98.890 Other specified postprocedural states; Z79.82 Long term (current) use of aspirin; Z79.899 Other long term (current) drug therapy

== ENCOUNTER 2017-01-07 06:23 | Emergency (ER) | payer OTHER ==
[~2017-01-07] VITALS: Ht 185.4 cm; Wt 47.6 kg
[2017-01-07 06:30] VITALS: TEMP 36.5; Ht 185.4 cm; Wt 47.6 kg
--- NOTE | 2017-01-07 06:46 | EMERGENCY ROOM VISIT NOTE ---
ED Visit Note First contact with patient: 06:34 Resident Physician Supervision Note: I interviewed and examined the patient. Discussed with Dr. Horta and agree with findings and plan as documented in the note. Documented By: Mckay Leo Problem List Medical Problems: (1) Benign hypertension Status: Chronic (2) COPD (chronic obstructive pulmonary disease) Status: Chronic (3) Multiple orthopedic surgeries Status: Resolved (4) Pneumonia Status: Resolved (5) Syncope Status: Resolved (6) Syncope Status: Resolved Current/Historical Medications Scheduled Aspirin (Aspirin Low Dose), 81 MG PO QD@1200 Cholecalciferol (Vitamin D 1000 Unit), 1,000 INTER.UNIT PO QD@1200 Lisinopril (Lisinopril), 5 MG PO QD@1200 Nitrofurantoin Macrocrystal (Nitrofurantoin Macrocryst), 100 MG PO HS Tiotropium [place] (Spiriva Handihaler), 1 CAP INH QAM Scheduled PRN Albuterol Hfa (Ventolin Hfa), 2 PUFFS INH QID PRN for Wheezing Allergies Coded Allergies: No Known Allergies (Verified , 12/02/16) Vital Signs Date Time Temp Pulse Resp B/P Pulse Ox O2 Delivery O2 Flow Rate FiO2 01/07/17 06:30 36.5 97 24 116/78 95 Room Air Departure Information Referrals Tyrone Kennedy D.OGabriel (PCP) Patient Instructions My [facility]
[2017-01-07] MEDS ORDERED: AMOX500C3 PO (06:57)
[2017-01-07] MEDS ORDERED: FLUCONAZOLE 50 MG TAB PO ONE (07:00)
--- NOTE | 2017-01-07 07:20 | EMERGENCY ROOM VISIT NOTE ---
History First contact with patient: 06:43 Chief Complaint: CATHETER REPLACEMENT Stated Complaint: CLOGGED CATHETER History of Present Illness The patient is a 71 year old male who presents to the Emergency Room with complaints of inability to urinate and suprapubic pain. The patient has been unable to urinate since 2pm yesterday afternoon because of clotting in his catheter. His last catheter replacement was 3 weeks ago. He has a history of BPH for which he requires urinary catheterization. His bladder scan this morning shows >500cc of urine. He also has suprapubic pain that has worsened since last night due to inability to urinate. Denies any fever, chills, or other concerning symptoms. Review of Systems See HPI for pertinent positives and negatives. A total of ten systems were reviewed and were otherwise negative. Past Medical/Surgical History Medical Problems: (1) Benign hypertension (2) COPD (chronic obstructive pulmonary disease) (3) Multiple orthopedic surgeries (4) Pneumonia (5) Syncope (6) Syncope Family History None provided Social History Smoking Status: Current Every Day Smoker Alcohol Use: occasionally Marital Status: single Housing Status: lives alone Occupation Status: retired Current/Historical Medications Scheduled Amoxicillin (Amoxil), 500 MG PO TID Aspirin (Aspirin Low Dose), 81 MG PO QD@1200 Cholecalciferol (Vitamin D 1000 Unit), 1,000 INTER.UNIT PO QD@1200 Lisinopril (Lisinopril), 5 MG PO QD@1200 Nitrofurantoin Macrocrystal (Nitrofurantoin Macrocryst), 100 MG PO HS Tiotropium [place] (Spiriva Handihaler), 1 CAP INH QAM Scheduled PRN Albuterol Hfa (Ventolin Hfa), 2 PUFFS INH QID PRN for Wheezing Allergies Coded Allergies: No Known Allergies (Verified , 12/02/16) Physical Exam Vital Signs Date Time Temp Pulse Resp B/P Pulse Ox O2 Delivery O2 Flow Rate FiO2 01/07/17 06:30 36.5 97 24 116/78 95 Room Air Physical Exam GENERAL: Awake, alert, well-appearing, in no distress HENT: Normocephalic, atraumatic. EYES: Normal conjunctiva. Sclera non-icteric. RESPIRATORY: Bilateral crackles. Good inspiratory effort. CARDIAC: Regular rate, normal rhythm. Extremities warm and well perfused. Pulses equal. ABDOMEN: Soft, non-distended. Suprapubic tenderness. RECTAL: Deferred. MUSCULOSKELETAL: Chest examination reveals no tenderness. The back is symmetrical on inspection without obvious abnormality. There is no CVA tenderness to palpation. LOWER EXTREMITIES: Calves are equal size bilaterally and non-tender. No edema. No discoloration. NEURO: Normal sensorium. No sensory or motor deficits noted. SKIN: No rash or jaundice noted. Medical Decision & Procedures Laboratory Results Test 01/07/17 06:50 Medications Administered Medications (Trade) Dose Ordered Sig/Emy Route Start Time Stop Time Status Last Admin Dose Admin Fluconazole (Diflucan Tab) 150 mg NOW ONCE PO 01/07/17 07:00 01/07/17 07:01 DC 01/07/17 07:00 150 MG Medical Decision Patient is a 71 year old male that presents with urinary retention after clotting his catheter - Bladder scan revealed >500cc of urine - Patient had catheter changed in ED - Bladder successfully drained - Samples collected for UA and Urine Culture - Diflucan 150mg tab in ED (history of previous urine culture with fungal growth ) Patient feels much improved after catheter assisted bladder drainage - Discharged home on a course of 7 days of Amoxicillin - Has appointment with PCP tomorrow Impression Primary Impression: Complication of catheter Departure Information Dispostion Home / Self-Care Condition GOOD Prescriptions Amoxicillin (AMOXIL) 500 Mg Cap 500 MG PO TID for 7 Days, #21 CAP Prov: Mariano Horta MD 01/07/17 Referrals Tyrone Kenendy D.O. (PCP) Patient Instructions My [facility] Additional Instructions - Take 1 Tab of Amoxicillin 500mg three times per day for the next 7 days for a Urinary Tract Infection and to prevent reclotting of your catheter - Follow up with your primary care physician in the next week - If your symptoms recur or you have any signs or symptoms of continued infection with antibiotic treatment, please be seen by a physician or return to the emergency department Problem Qualifiers Primary Impression: Complication of catheter Encounter type: initial encounter Qualified Codes: T85.9XXA - Unspecified complication of internal prosthetic device, implant and graft, initial encounter
[2017-01-07 07:38] VITALS: BP 110/74; PULSE 70; O2SAT 97
[2017-01-07 07:51] LABS: MANUAL MICROSCOPIC REQUIRED? YES; URINE APPEARANCE CLOUDY (CLEAR); URINE BILIRUBIN NEG (NEG); URINE COLOR AMBER; URINE NITRITE NEG (NEG); URINE PH 5.5 (4.5-7.5); UROBILINOGEN NEG (NEG)
[2017-01-07 07:53] LABS: REVIEW REQ? NO
[2017-01-07 08:01] LABS: URINE RBC >30 /hpf (0-4)
[2017-01-07 08:03] LABS: URINE BACTERIA NEG (NEG)
[2017-01-07 08:06] LABS: ZZURINE CULT IF INDIC CATH YES
--- NOTE | 2017-01-09 15:02 | Pharmacy Progress Note ---
ED Pharmacist Culture FollowUp Date of Service: January 09, 2017. Patient received fluconazole 150 mg po x1 in the ED which may cover the yeast not Carol albicans growing from the patient's urine culture. However, course of therapy will need to be extended and (possibly dose increased) if this result does indeed indicate a true UTI. However, this could also be a contaminant. Nikky Becker (RN) at [facility] . Noted that follow-up and prescriptions (if needed) will be managed by the patient's PCP, Dr. Tyrone Kennedy. Provided fax number of . I faxed the results. No further intervention required by [facility] ED personnel.
[2017-04-01] MEDS ORDERED: ASPI1TAB48 PO (03:07)
[2017-04-01] MEDS ORDERED: NITR100C2 PO (16:53)
== END 2017-01-07 07:39 | disposition home or self-care (01) ==
LOC: C.EDB 06:24 → C.EDA 07:39
DX: T83.098A Other mechanical complication of other urinary catheter, initial encounter (principal); X58.XXXA Exposure to other specified factors, initial encounter; I10 Essential (primary) hypertension; J44.9 Chronic obstructive pulmonary disease, unspecified; F17.200 Nicotine dependence, unspecified, uncomplicated; Z98.890 Other specified postprocedural states; Z79.82 Long term (current) use of aspirin; Z79.899 Other long term (current) drug therapy

== ENCOUNTER 2017-02-12 16:27 | Emergency (ER) | payer OTHER ==
[~2017-02-12] VITALS: Ht 185.4 cm; Wt 47.2 kg
[2017-02-12 16:39] VITALS: TEMP 36.7; Ht 185.4 cm; Wt 47.2 kg
--- NOTE | 2017-02-12 17:14 | EMERGENCY ROOM VISIT NOTE ---
History Report prepared by Lia: Ricardo Lloyd Under the Supervision of: Dr. Ramiro Gonsalez D.O. First contact with patient: 16:42 Chief Complaint: CATHETER REPLACEMENT Stated Complaint: [facility] REM[facility] JEAN BAPTISTE CATH, NEEDS REPLACED History of Present Illness The patient is a 71 year old male who presents to the Emergency Room for a catheter replacement. The patient states that he was going to [place] Baptiste catheter replacement, and they could not put it in. He states that they tried twice, and the second time they got some blood. He states that he has a catheter due to enlargement of his prostate. The patient denies any fevers, chills, nausea, or vomiting. He states that he has a history of emphysema. Source of History: patient Position: other (penis) Quality: other (jean baptiste catheter replacement) Associated Symptoms: No fevers, No chills, No nausea, No vomiting Review of Systems See HPI for pertinent positives & negatives. A total of 6 systems reviewed and were otherwise negative. Past Medical & Surgical Medical Problems: (1) Benign hypertension (2) COPD (chronic obstructive pulmonary disease) (3) Multiple orthopedic surgeries (4) Pneumonia (5) Syncope (6) Syncope Family History None provided Social History Smoking Status: Former Smoker Alcohol Use: occasionally Marital Status: single Housing Status: lives alone Occupation Status: retired Current/Historical Medications Scheduled Aspirin (Aspirin Low Dose), 81 MG PO QD@1200 Budesonide/Formoterol Fumarate (Symbicort 160/4.5 Inhaler ), 1 INH BID Cholecalciferol (Vitamin D 1000 Unit), 1,000 INTER.UNIT PO QD@1200 Lisinopril (Lisinopril), 5 MG PO QD@1200 Nitrofurantoin Macrocrystal (Nitrofurantoin Macrocryst), 100 MG PO HS Tiotropium [place] (Spiriva Handihaler), 1 CAP INH QAM Scheduled PRN Albuterol Hfa (Ventolin Hfa), 2 PUFFS INH QID PRN for Wheezing Allergies Coded Allergies: No Known Allergies (Verified , 12/02/16) Physical Exam Vital Signs Date Time Temp Pulse Resp B/P (MAP) Pulse Ox O2 Delivery O2 Flow Rate FiO2 02/12/17 18:50 82 18 125/77 95 02/12/17 16:39 36.7 60 16 150/88 96 Room Air Physical Exam GENERAL: Patient is awake, alert, and mildly anxious appearing. EYES: The conjunctivae are clear. The pupils are round and reactive. EARS, NOSE, MOUTH AND THROAT: The nose is without any evidence of any deformity. Mucous membranes are moist tongue is midline NECK: The neck is nontender and supple. RESPIRATORY: Diminished lung sounds throughout. Faint expiratory wheezing in the upper lung ocasio. No tachypnea or conversational dyspnea. CARDIOVASCULAR: Regular rate and rhythm noted there no murmurs rubs or gallops normal S1 normal S2 GASTROINTESTINAL: The abdomen is soft. Bowel sounds are present in all quadrants. Abdomen is nontender : Circumcised male genitalia appreciated. Bilateral inguinal hernias noted which are nontender and not incarcerated. Blood is present at the urethral meatus. MUSCULOSKELETAL/EXTREMITIES: There is no evidence of gross deformity full range of motion is noted in the hips and shoulders SKIN: There is no obvious evidence of any rash. There are no petechiae, pallor or cyanosis noted. NEUROLOGIC: Patient is awake alert and oriented x3 Medical Decision & Procedures Laboratory Results Test 02/12/17 17:00 Urine Color RED Urine Appearance TURBID (CLEAR) Urine pH 6.0 (4.5-7.5) Urine Specific [place] 1.020 (1.000-1.030) Urine Protein 2+ (NEG) Urine Glucose (UA) NEG (NEG) Urine Ketones 1+ (NEG) Urine Occult Blood 3+ (NEG) Urine Nitrite NEG (NEG) Urine Bilirubin NEG (NEG) Urine Urobilinogen NEG (NEG) Urine Leukocyte Esterase MODERATE (NEG) Urine WBC (Auto) >30 /hpf (0-5) Urine RBC (Auto) >30 /hpf (0-4) Urine Hyaline Casts (Auto) 10-30 /lpf (0-5) Urine Epithelial Cells (Auto) >30 /lpf (0-5) Urine Bacteria (Auto) NEG (NEG) Urine Renal Epithelial Cells /lpf (0-5) Urine Pathogenic Casts /lpf (0) Urine Yeast (Auto) (NONE PRSENT) Laboratory results per my review. Medications Administered Medications (Trade) Dose Ordered Sig/Emy Route Start Time Stop Time Status Last Admin Dose Admin Albuterol (Ventolin Hfa Inhaler) 2 puffs NOW ONCE INH 02/12/17 18:00 02/12/17 18:01 DC 02/12/17 18:39 2 PUFFS ED Course 1648: The patient was evaluated in room C1. A complete history and physical examination were performed. 165: I tried to call [place], however there was nobody there. 175: Upon reevaluation, the patient is feeling well. I discussed the results and treatment plan with him. He verbalized agreement of the treatment plan. He was discharged home. 1800: Albuterol 2 puffs INH Medical Decision Patient was found to have a slightly elevated blood pressure due to circumstances. I do not believe that the patient requires hypertension monitoring. Medication Reconciliation: I attest that I have personally reviewed the patient' s current medications list. The patient is a 71-year-old male who presented to the emergency department for an evaluation of Jean Baptiste catheter replacement. The patient has a chronic indwelling Jean Baptiste for prostate problems. He had [place] Bapt[place] and was sent to the emergency department because they were unable to get the catheter replaced. He had significant bleeding at the urethral meatus and I would be concerned that they caused a false passage when they initially tried to place his Jean Baptiste. I attempted to replace his Jean Baptiste catheter and was successful. He had some hematuria initially but it cleared. The patient's urine was sent for urinalysis and culture. The patient continued to have some bleeding at his urethral meatus. He was encouraged to follow-up at the [place] [facility] as soon as possible for reevaluation he was also encouraged to return if this bleeding did not stop on its own. I also told him not to have the Jean Baptiste catheter removed and replaced in less than was by a urologist. He was also encouraged to follow-up for the urine culture results. The patient's most recent urine cultures did grow out yeast so I would wait for urine culture report rather than start the patient on antibiotics. He was also encouraged return to the emergency department immediately symptoms change worsen or the need arises. Impression Primary Impression: Encounter for Jean Baptiste catheter replacement Scribe Attestation The scribe's documentation has been prepared under my direction and personally reviewed by me in its entirety. I confirm that the note above accurately reflects all work, treatment, procedures, and medical decision making performed by me. Departure Information Dispostion Home / Self-Care Referrals Tyrone Kennedy D.O. (PCP) Forms HOME CARE DOCUMENTATION FORM, IMPORTANT VISIT INFORMATION Patient Instructions ED Catheter Care Nataliya Patti [facility] Additional Instructions Follow-up with urologist as scheduled. Continue to keep the Jean Baptiste catheter in place until your seen by the urologist. Continue all medications as prescribed. Follow-up with your family doctor for culture results in 48 hours. You may need to be started on an antibiotic if the culture results are positive.
[2017-02-12 17:37] LABS: URINE BILIRUBIN NEG (NEG); URINE EPITHELIAL CELL AUTO >30 /lpf (0-5); URINE NITRITE NEG (NEG); UROBILINOGEN NEG (NEG)
[2017-02-12 17:41] LABS: MANUAL MICROSCOPIC REQUIRED? NO; REVIEW REQ? YES; URINE APPEARANCE TURBID (CLEAR); URINE COLOR RED
[2017-02-12] MEDS ORDERED: ALBUTEROL HFA 8 GM INHALER INH ONE (18:00)
[2017-02-12 18:50] VITALS: BP 125/77; PULSE 82; O2SAT 95
[2017-04-01] MEDS ORDERED: ASPI1TAB48 PO (03:07)
== END 2017-02-12 18:50 | disposition home or self-care (01) ==
LOC: C.EDB 16:28 → C.EDC 18:50
DX: Z04.8 Encounter for examination and observation for other specified reasons (principal); T83.9XXA Unspecified complication of genitourinary prosthetic device, implant and graft, initial encounter; X58.XXXA Exposure to other specified factors, initial encounter; I10 Essential (primary) hypertension; J44.9 Chronic obstructive pulmonary disease, unspecified; Z98.890 Other specified postprocedural states; Z87.891 Personal history of nicotine dependence; Z79.82 Long term (current) use of aspirin; Z79.899 Other long term (current) drug therapy

== ENCOUNTER 2017-02-22 13:58 | Emergency (ER) | payer OTHER ==
[~2017-02-22] VITALS: Ht 185.4 cm; Wt 48.0 kg
[2017-02-22 14:07] VITALS: TEMP 37.4; Ht 185.4 cm; Wt 48.0 kg
[2017-02-22] MEDS ORDERED: ALBUT/IPRATROP 3MG/0.5MG NEB 3 ML VIAL INH STA (14:17)
[2017-02-22] MEDS ORDERED: ALBUTEROL HFA 8 GM INHALER INH ONE (14:30)
--- NOTE | 2017-02-22 14:44 | EMERGENCY ROOM VISIT NOTE ---
History Report prepared by Lia: Tana Leblanc Under the Supervision of: Dr. Fox Potter M.D. First contact with patient: 14:12 Chief Complaint: CATHETER REPLACEMENT Stated Complaint: JEAN BAPTISTE CATHETER WON'T DRAIN History of Present Illness The patient is a 71 year old male who presents to the Emergency Room with complaints of Jean Baptiste catheter malfunction occurring last night. The patient had some urine output last night. Overnight, the patient's catheter became clogged and urine stopped draining. He currently reports an urge to urinate. He reports a pain intensity of 6/10. He also complains of shortness of breath which is worse than normal. He is almost out of his inhaler. He has a history of COPD. He denies fevers, chills, vomiting, or any other complaints. Source of History: patient Onset: last night Position: other (global) Symptom Intensity: 6/10 Quality: other (jean baptiste catheter malfunction) Associated Symptoms: + SOB, No fevers, No chills, No vomiting Review of Systems See HPI for pertinent positives & negatives. A total of 10 systems reviewed and were otherwise negative. Past Medical & Surgical Medical Problems: (1) Benign hypertension (2) COPD (chronic obstructive pulmonary disease) (3) Multiple orthopedic surgeries (4) Pneumonia (5) Syncope (6) Syncope Family History None provided Social History Smoking Status: Former Smoker Alcohol Use: occasionally Marital Status: single Housing Status: lives alone Occupation Status: retired Current/Historical Medications Scheduled Aspirin (Aspirin Low Dose), 81 MG PO QD@1200 Budesonide/Formoterol Fumarate (Symbicort 160/4.5 Inhaler ), 1 INH BID Cholecalciferol (Vitamin D 1000 Unit), 1,000 INTER.UNIT PO QD@1200 Lisinopril (Lisinopril), 5 MG PO QD@1200 Nitrofurantoin Macrocrystal (Nitrofurantoin Macrocryst), 100 MG PO HS Tiotropium [place] (Spiriva Handihaler), 1 CAP INH QAM Scheduled PRN Albuterol Hfa (Ventolin Hfa), 2 PUFFS INH QID PRN for Wheezing Allergies Coded Allergies: No Known Allergies (Verified , 02/22/17) Physical Exam Vital Signs Date Time Temp Pulse Resp B/P (MAP) Pulse Ox O2 Delivery O2 Flow Rate FiO2 7/8/17 14:07 37.4 99 22 161/82 98 Room Air Physical Exam GENERAL: Patient is in no acute distress. HEENT: No acute trauma, normocephalic atraumatic, mucous membranes moist, no nasal congestion, no scleral icterus. NECK: No stridor, no adenopathy, no meningismus, trachea is midline. LUNGS: Decreased breath sounds, no wheeze, no rhonchi, breath sounds equal, increased respiratory rate. HEART: Mildly tachycardic rate with occasional extra beats, no murmurs. ABDOMEN: Soft, nontender, bowel sounds positive, no hernias, no peritonitis. Distended bladder with tenderness in this area, Jean Baptiste catheter in place with minimal yellow urine in bag. EXTREMITIES: No cyanosis or edema, full range of motion of all the joints without pain or difficulty, no signs for acute trauma. NEUROLOGIC: Oriented x 3, no acute motor or sensory deficits, no focal weakness. SKIN: No rash, no jaundice, no diaphoresis. Medical Decision & Procedures Medications Administered Medications (Trade) Dose Ordered Sig/Emy Route Start Time Stop Time Status Last Admin Dose Admin Albuterol/ Ipratropium (Duoneb) 3 ml NOW STAT INH 02/22/17 14:17 02/22/17 14:18 DC 02/22/17 14:30 3 ML Albuterol (Ventolin Hfa Inhaler) 3 puffs NOW ONCE INH 02/22/17 14:30 02/22/17 14:31 DC 02/22/17 14:30 3 PUFFS ED Course 1412: The patient was evaluated in room A10. A complete history and physical exam was performed. 1417: DuoNeb 3 ml INH 1430: Albuterol 3 puffs INH 1454: Reevaluated the patient. His catheter is now draining and he feels much better. Discussed results and discharge instructions: He verbalized understanding and agreement. The patient is ready for discharge. Medical Decision Medication Reconciliation: I attest that I have personally reviewed the patient' s current medication list. Blood pressure screening: Patient was found to have a slightly elevated blood pressure due to circumstances. I do not believe that the patient requires hypertension monitoring. Differential diagnosis includes but is not limited to Jean Baptiste catheter malfunction , blocked Jean Baptiste catheter, UTI, renal failure, dehydration. The patient presents complaining of a blocked Jean Baptiste catheter. This catheter had been placed over a week ago. He has not had fever or vomiting, the urine in the bag looked fairly clear, it was not cloudy. The patient had the Jean Baptiste catheter irrigated, this seemed to fix the issue, the Jean Baptiste drained about 1000 mL of urine, the patient felt markedly better. A urine culture was sent. The patient was out of his inhaler, he was given a DuoNeb, he was given an albuterol inhaler to take home. His breathing is controlled, his bladder is empty, he feels markedly better, he is being discharged home to follow with urology as scheduled. We can call with any positive urine culture results. Impression Primary Impression: Complication, blocked Jean Baptiste catheter Scribe Attestation The scribe's documentation has been prepared under my direction and personally reviewed by me in its entirety. I confirm that the note above accurately reflects all work, treatment, procedures, and medical decision making performed by me. Departure Information Dispostion Home / Self-Care Referrals No Doctor, Assigned (PCP) Forms HOME CARE DOCUMENTATION FORM, IMPORTANT VISIT INFORMATION Patient Instructions My [facility] Additional Instructions follow with urology as scheduled return for worsening symptoms return for fever we will call with urine culture results that require antibiotic treatment
[2017-02-22 15:00] VITALS: BP 138/88; PULSE 84; O2SAT 98
--- NOTE | 2017-02-26 13:44 | Pharmacy Progress Note ---
ED Pharmacist Culture FollowUp Date of Service: Feb 26, 2017. Patient's urine cx (cath specimen) from 02/22 is growing [address]obacter lwoffi. Dr Potter has requested the patient begin Cipro 500mg PO BID x 10 days based upon sensitivities. Notified patient of results and asked where he would want Rx called. Patient requested [facility] ([phone]) which I did do. No further action required.
[2017-04-01] MEDS ORDERED: ASPI1TAB48 PO (03:07)
== END 2017-02-22 15:00 | disposition home or self-care (01) ==
LOC: C.EDB 13:59 → C.EDA 15:00
DX: T83.098A Other mechanical complication of other urinary catheter, initial encounter (principal); R06.02 Shortness of breath; J44.9 Chronic obstructive pulmonary disease, unspecified; I10 Essential (primary) hypertension; Z79.899 Other long term (current) drug therapy; Z87.01 Personal history of pneumonia (recurrent); Z87.891 Personal history of nicotine dependence; Y84.6 Urinary catheterization as the cause of abnormal reaction of the patient, or of later complication, without mention of misadventure at the time of the procedure

== ENCOUNTER 2017-04-01 07:16 | Emergency (ER) | payer OTHER ==
[~2017-04-01] VITALS: Ht 185.4 cm; Wt 49.2 kg
[~2017-04-01 07:16] MED LIST changes: +ASPI1TAB48 PO; -NITR100C6 PO; -SULF800T23 PO
[2017-04-01 07:17] VITALS: TEMP 36.3; Ht 185.4 cm; Wt 49.2 kg
--- NOTE | 2017-04-01 07:20 | EMERGENCY ROOM VISIT NOTE ---
ED Visit Note First contact with patient: 07:19 I have seen and examined this patient with Flavio Nix and generally agree with the treatment plan as discussed. Problem List Medical Problems: (1) Benign hypertension Status: Chronic (2) COPD (chronic obstructive pulmonary disease) Status: Chronic (3) Multiple orthopedic surgeries Status: Resolved (4) Pneumonia Status: Resolved (5) Syncope Status: Resolved (6) Syncope Status: Resolved Current/Historical Medications Scheduled Aspirin (Aspirin Low Dose), 81 MG PO QD@1200 Budesonide/Formoterol Fumarate (Symbicort 160/4.5 Inhaler ), 1 INH BID Cholecalciferol (Vitamin D 1000 Unit), 1,000 INTER.UNIT PO QD@1200 Lisinopril (Lisinopril), 5 MG PO QD@1200 Nitrofurantoin Macrocrystal (Nitrofurantoin Macrocryst), 100 MG PO HS Tiotropium [place] (Spiriva Handihaler), 1 CAP INH QAM Scheduled PRN Albuterol Hfa (Ventolin Hfa), 2 PUFFS INH QID PRN for Wheezing Allergies Coded Allergies: No Known Allergies (Verified , 02/22/17) Departure Information Referrals Tyrone Kennedy D.O. (PCP) Patient Instructions My [facility]
--- NOTE | 2017-04-01 07:44 | EMERGENCY ROOM VISIT NOTE ---
History First contact with patient: 07:19 Chief Complaint: OTHER COMPLAINT Stated Complaint: JEAN BAPTISTE CATH WON'T DRAIN History of Present Illness The patient is a 71 year old male who presents to the Emergency Room with complaints of "jean baptiste cath won't drain". He notes he has a history of couple occasions with his urinary catheter, and follows with the [facility] for such. He sees a urologist at the facility. The patient states that yesterday evening he began noticing that his Jean Baptiste catheter was not draining appropriately as in the past. He states that associated with this there is slight discomfort in the bladder of which he notes usually develops when the Jean Baptiste catheter becomes blocked. He denies any dysuria, blood in the urine or any other associated symptoms. He denies any fevers or chills. The current Jean Baptiste has been in place for 2 months. Review of Systems A complete 10-point Review of Systems was discussed with the patient, with pertinent positives and negatives listed in the History of Present Illness. All remaining Review of Systems questions can be considered negative unless otherwise specified. Past Medical/Surgical History Medical Problems: (1) Benign hypertension (2) COPD (chronic obstructive pulmonary disease) (3) Multiple orthopedic surgeries (4) Pneumonia (5) Syncope (6) Syncope Family History None provided Social History Smoking Status: Never Smoker Alcohol Use: occasionally Marital Status: single Housing Status: lives alone Occupation Status: retired Current/Historical Medications Scheduled Aspirin (Aspirin Low Dose), 81 MG PO QD@1200 Budesonide/Formoterol Fumarate (Symbicort 160/4.5 Inhaler ), 1 PUFF INH BID Cholecalciferol (Vitamin D 1000 Unit), 1,000 INTER.UNIT PO QD@1200 Ciprofloxacin Hcl (Cipro), 500 MG PO BID Lisinopril (Lisinopril), 5 MG PO QD@1200 Nitrofurantoin Macrocrystal (Nitrofurantoin Macrocryst), 100 MG PO HS Tiotropium [place] (Spiriva Handihaler), 1 CAP INH QAM Scheduled PRN Albuterol Hfa (Ventolin Hfa), 2 PUFFS INH QID PRN for Wheezing Physical Exam Vital Signs Date Time Temp Pulse Resp B/P (MAP) Pulse Ox O2 Delivery O2 Flow Rate FiO2 04/01/17 07:17 36.3 98 18 121/79 97 Room Air Physical Exam VITAL SIGNS - Vital signs and nursing notes were reviewed. GENERAL -71-year-old male appearing his stated age who is in no acute distress. Communicates well with provider and answers questions appropriately. SKIN - Without rashes. HEAD - NC/AT. LUNGS - Chest wall symmetric without accessory muscle use, intercostals retractions, or central cyanosis. Normal vesicular breath sounds CTA B/L. No wheezes, rales, or rhonchi appreciated. CARDIAC - RRR with S1/S2. No murmur, rubs, or gallops appreciated. ABDOMEN - Abdominal contour normal without pulsations or visible masses. BS normoactive all four quadrants. No tenderness, palpable masses, hepatosplenomegaly, or ascites noted. Suprapubic tenderness. Medical Decision & Procedures Laboratory Results Test 04/01/17 08:00 Urine Color DK YELLOW Urine Appearance CLOUDY (CLEAR) Urine pH 6.5 (4.5-7.5) Urine Specific [place] 1.019 (1.000-1.030) Urine Protein 1+ (NEG) Urine Glucose (UA) NEG (NEG) Urine Ketones NEG (NEG) Urine Occult Blood 3+ (NEG) Urine Nitrite NEG (NEG) Urine Bilirubin NEG (NEG) Urine Urobilinogen NEG (NEG) Urine Leukocyte Esterase LARGE (NEG) Urine WBC (Auto) >30 /hpf (0-5) Urine RBC (Auto) >30 /hpf (0-4) Urine Hyaline Casts (Auto) 5-10 /lpf (0-5) Urine Epithelial Cells (Auto) 0-5 /lpf (0-5) Urine Bacteria (Auto) NEG (NEG) ED Course Full evaluation was had in room B 10. At this time fully catheter was felt to need replacement. This was replaced without difficulty. Urine reveals infection most likely. Pending. Cipro prescribed. Discharged home in good condition. Medical Decision Patient was seen and evaluated as above. Previous visits were extensively reviewed. He's been here numerous times secondary to complications with the catheter. He does have prostate issues. Current catheterization in 2 months. Benefits versus risk of flushing versus removal and replacement was discussed and the decision was made to replace. This was done without difficulty. He was reevaluated and was feeling no more pressure in the bladder and noted no other symptoms. He's been on various antibiotics in the past, and it appears that Cipro works best for him of which she verified. He'll be placed upon a 10 day course of Cipro. Case was discussed with the attending physician, who also personally evaluated the patient Dr. Leo. He is to follow-up with his family doctor as well as urology. He is to return with worsening. He was educated upon the risks of Cipro, encouraged to not take any steroids at this medication. He notes that he is currently not taking any steroids. He was educated upon worrisome symptoms which to return, had questions no discharge, and was discharged home in good condition. In evaluation treatment this patient following differential diagnoses were entertained: UTI, pyelonephritis, blocked Jean Baptiste catheter, among others. I examination there is no CVA tenderness, or any other pain and he is afebrile. I suspect that this could be a urinary tract infection, however this could be contaminant. Culture is pending. In the meantime he'll be placed upon Cipro. Medication Reconcilliation Current Medication List: was personally reviewed by me Impression Primary Impression: Complication, blocked Jean Baptiste catheter Additional Impressions: Hematuria Urinary tract infection Departure Information Dispostion Home / Self-Care Condition GOOD Prescriptions Ciprofloxacin Hcl (CIPRO) 500 Mg Tab 500 MG PO BID for 10 Days, #20 TAB Prov: Flavio Nix PA-C 04/01/17 Referrals Tyrone Kennedy,Dragan.OGabriel (PCP) Patient Instructions My [facility] Additional Instructions You have been treated in the Emergency Department for a Urinary Tract Infection (UTI), and blocked Jean Baptiste catheter. You have been prescribed Cipro to be taken every 12 hours. This is an antibiotic. All antibiotics have the potential to cause diarrhea. Stop this medication and contact a medical provider if you were to develop any significant adverse side effects including: wheezing, shortness of breath, passing out, vomiting, or a diffuse rash. Always take antibiotics as directed and COMPLETE the ENTIRE course regardless of the improvement of your symptoms. Please be careful as this medication in combination with a steroid can increase her risk of tendon rupture. I recommend not engaging in strenuous exercise or activity until finishing this medication. Drink plenty of water and stay well hydrated. As with any trip to the Emergency Department, you should follow-up with your Primary Care Provider from today's visit. Please also follow-up with your urologist. Please call them later today to schedule follow-up. Return to the emergency department if your symptoms persist despite treatment plan outlined above or if the following symptoms occur: increased fevers, chills , low back pain, nausea/vomiting, or blood in your urine. Please return to the emergency department with any new/concerning symptoms. Problem Qualifiers
[2017-04-01 08:26] LABS: URINE APPEARANCE CLOUDY (CLEAR); URINE BILIRUBIN NEG (NEG); URINE COLOR DK YELLOW; URINE EPITHELIAL CELL AUTO 0-5 /lpf (0-5); URINE NITRITE NEG (NEG); URINE PH 6.5 (4.5-7.5); URINE SPECIFIC GRAVITY 1.019 (1.000-1.030); UROBILINOGEN NEG (NEG); ZZURINE CULT IF INDIC CATH YES
[2017-04-01 08:27] LABS: MANUAL MICROSCOPIC REQUIRED? NO; REVIEW REQ? NO
[2017-04-01] MEDS ORDERED: CIPR-255 PO (08:42)
[2017-04-01 09:07] VITALS: BP 115/80; PULSE 85; O2SAT 96
[2017-04-01] MEDS ORDERED: LSN5 PO (09:27)
[2017-04-01] MEDS ORDERED: CHOL100027 PO (16:06)
[2017-04-01] MEDS ORDERED: SPRIN/30 INH (16:15)
[2017-04-01] MEDS ORDERED: SYMIN160 INH (16:50)
[2017-04-01] MEDS ORDERED: NITR100C PO (16:53)
[2017-04-01] MEDS ORDERED: VNTHFA/IN INH (17:05)
== END 2017-04-01 09:08 | disposition home or self-care (01) ==
LOC: C.EDB 07:17
DX: T83.098A Other mechanical complication of other urinary catheter, initial encounter (principal); Y84.6 Urinary catheterization as the cause of abnormal reaction of the patient, or of later complication, without mention of misadventure at the time of the procedure; R31.9 Hematuria, unspecified; N39.0 Urinary tract infection, site not specified; I10 Essential (primary) hypertension; J44.9 Chronic obstructive pulmonary disease, unspecified; Z87.01 Personal history of pneumonia (recurrent); Z79.82 Long term (current) use of aspirin; Z79.899 Other long term (current) drug therapy

== ENCOUNTER 2017-05-16 07:53 | Emergency (ER) | payer OTHER ==
[~2017-05-16] VITALS: Ht 185.4 cm; Wt 49.6 kg
[~2017-05-16 07:53] MED LIST changes: +CHOL100027 PO; +CIPR-255 PO; +LSN5 PO; +NITR100C PO; +SPRIN/30 INH; +SYMIN160 INH; +VNTHFA/IN INH
[2017-05-16 08:02] VITALS: TEMP 36.7; Ht 185.4 cm; Wt 49.6 kg
[2017-05-16] MEDS ORDERED: ALBUTEROL HFA 8 GM INHALER INH STA (08:16)
--- NOTE | 2017-05-16 08:21 | EMERGENCY ROOM VISIT NOTE ---
History Report prepared by Lia: Radha Piña Under the Supervision of: Dr. Rc Marino M.D. First contact with patient: 08:09 Chief Complaint: OTHER COMPLAINT Stated Complaint: JEAN BAPTISTE CATHETER CLOGGED- WON'T DRAIN History of Present Illness The patient is a 71 year old male who presents to the Emergency Room with complaints of a persistent clogged Jean Baptiste catheter since 2100 last evening. He currently rates his discomfort as a 6/10 in severity. The patient states that he had a Jean Baptiste catheter placed for an enlarged prostate. He states that he has had the catheter for six weeks. The patient denies ever having his catheter clogged in the past. He denies any history of a prostate surgery. The patient states that last evening he noticed his Jean Baptiste catheter become clogged and additionally states that he noticed hematuria. He additionally reports a history of emphysema, and states that he still smokes cigarettes. The patient states that he is feeling short of breath today. He denies any fever or chills. Source of History: patient Onset: 2099 last evening Position: other (global) Symptom Intensity: 6/10 Quality: other (clogged Jean Baptiste catheter) Timing: other (persistent) Associated Symptoms: + SOB, No fevers, No chills Review of Systems All systems have been listed, reviewed, and are negative other than those previously mentioned. Please see Additional Medical History Sheet. Past Medical & Surgical Medical Problems: (1) Benign hypertension (2) COPD (chronic obstructive pulmonary disease) (3) Multiple orthopedic surgeries (4) Pneumonia (5) Syncope (6) Syncope Family History Diabetes mellitus Heart disease Hypertension Social History Smoking Status: Former Smoker Alcohol Use: occasionally Marital Status: single Housing Status: lives with friends Occupation Status: retired Current/Historical Medications Scheduled Aspirin (Aspirin Low Dose), 81 MG PO QD@1200 Budesonide/Formoterol Fumarate (Symbicort 160/4.5 Inhaler ), 1 PUFF INH BID Lisinopril (Lisinopril), 5 MG PO QD@1200 Sulfa/Trimethoprim (Bactrim Ds 800MG/160MG), 1 TAB PO BID Tiotropium [place] (Spiriva Handihaler), 1 CAP INH QAM Scheduled PRN Albuterol Hfa (Ventolin Hfa), 2 PUFFS INH QID PRN for Wheezing Allergies Coded Allergies: No Known Allergies (Verified , 04/01/17) Physical Exam Vital Signs Date Time Temp Pulse Resp B/P (MAP) Pulse Ox O2 Delivery O2 Flow Rate FiO2 05/16/17 10:53 132/88 95 05/16/17 09:38 80 16 137/88 98 Room Air 05/16/17 08:02 36.7 94 20 130/90 96 Room Air Physical Exam GENERAL: Patient appears dyspneic and tachypneic. Patient awake, alert, oriented x 3. Patient follows commands. Patient does not appear toxic. Patient is adequately hydrated and well-nourished. SKIN: No erythema, pallor, cyanosis or rash HEENT: Normal head, pupils equal, reactive to light and accommodation. Oral cavity and posterior pharynx appear normal. Neck: Without adenopathy, no neck vein distention. LUNGS: Patient is dyspneic and tachypneic HEART: No murmurs. No gallops. No rubs ABDOMEN: Soft, nontender. Right inguinal hernia. : Jean Baptiste in place, blood noted in the Jean Baptiste bag. EXTREMITIES: No signs of acute infection or trauma. NEUROLOGIC: Cranial nerves II-XII within normal limits. No gross motor sensory function deficits. Medical Decision & Procedures Laboratory Results Test 05/16/17 08:42 Urine Color BROWN Urine Appearance CLOUDY (CLEAR) Urine pH 6.0 (4.5-7.5) Urine Specific [place] 1.015 (1.000-1.030) Urine Protein 1+ (NEG) Urine Glucose (UA) NEG (NEG) Urine Ketones NEG (NEG) Urine Occult Blood 3+ (NEG) Urine Nitrite POS (NEG) Urine Bilirubin NEG (NEG) Urine Urobilinogen NEG (NEG) Urine Leukocyte Esterase LARGE (NEG) Urine RBC >30 /hpf (0-4) Urine WBC >30 /hpf (0-5) Urine Epithelial Cells 5-10 /lpf (0-5) Urine Bacteria 2+ (NEG) Urine Hyaline Casts 1-5 /lpf (0-5) Laboratory results as stated above per my review. Medications Administered Medications (Trade) Dose Ordered Sig/Emy Route Start Time Stop Time Status Last Admin Dose Admin Albuterol (Ventolin Hfa Inhaler) 2 puffs NOW STAT INH 05/16/17 08:16 05/16/17 08:18 DC 05/16/17 08:46 2 PUFFS ED Course 0810: Past medical records reviewed. The patient was evaluated in room B2. A complete history and physical examination was performed. 0816: Ordered Albuterol 2 puffs INH. 1023: I reevaluated the patient and he is doing well. I discussed the exam findings with him and I discussed the treatment plan. He verbalized complete understanding and agreement. He is ready to go home. Medical Decision Nurses notes reviewed. Medical history sheet reviewed. Differential diagnosis includes but is not limited to: Urinary retention, urinary tract infection, emphysema. The patient has a long history of emphysema and normally gets more short of breath if he has any kind of urinary problem. He does not feel he needs a chest x-ray now or workup for the emphysema. The patient has lots of blood in his urine. Most likely has a clot obstructing the catheter. The catheter was irrigated but that did not resolve the problem therefore the old catheter was removed and a new one was placed. The patient had a large amount of urine flow following the new catheter. Urinalysis reveals significant red and white cells with large leukocyte Estrace. The patient was placed on Bactrim. The patient is to follow-up with his family physician. Medication Reconcilliation Current Medication List: was personally reviewed by me Blood Pressure Screening Patient's blood pressure: Elevated blood pressure Blood pressure disposition: Referred to PCP Impression Primary Impression: Urinary retention Scribe Attestation The scribe's documentation has been prepared under my direction and personally reviewed by me in its entirety. I confirm that the note above accurately reflects all work, treatment, procedures, and medical decision making performed by me. Departure Information Dispostion Home / Self-Care Prescriptions Sulfa/Trimethoprim (Bactrim Ds 800MG/160MG) Tab 1 TAB PO BID, #20 TAB Prov: Rc Marino M.D. 05/16/17 Referrals No Doctor, Assigned (PCP) Forms HOME CARE DOCUMENTATION FORM, IMPORTANT VISIT INFORMATION, WORK / SCHOOL INSTRUCTIONS Patient Instructions My [facility] Additional Instructions One Bactrim twice a day for 10 days. Drink extra fluids. Follow-up with your family physician within the next 10 days. Return here sooner if your catheter becomes blocked again.
[2017-05-16 09:12] LABS: MANUAL MICROSCOPIC REQUIRED? YES; URINE APPEARANCE CLOUDY (CLEAR); URINE BILIRUBIN NEG (NEG); URINE COLOR BROWN; URINE NITRITE POS (NEG); URINE SPECIFIC GRAVITY 1.015 (1.000-1.030); UROBILINOGEN NEG (NEG)
[2017-05-16 09:38] VITALS: PULSE 80
[2017-05-16 09:39] LABS: REVIEW REQ? NO
[2017-05-16 09:41] LABS: URINE BACTERIA 2+ (NEG); URINE RBC >30 /hpf (0-4); URINE WBC >30 /hpf (0-5)
[2017-05-16 09:48] LABS: ZZURINE CULT IF INDIC CATH YES
[2017-05-16] MEDS ORDERED: SULF800T23 PO (10:34)
[2017-05-16 10:53] VITALS: BP 132/88; O2SAT 95
== END 2017-05-16 10:54 | disposition home or self-care (01) ==
LOC: C.EDB 07:54
DX: R33.9 Retention of urine, unspecified (principal); I10 Essential (primary) hypertension; J44.9 Chronic obstructive pulmonary disease, unspecified; Z98.890 Other specified postprocedural states; Z87.891 Personal history of nicotine dependence; Z79.82 Long term (current) use of aspirin; Z79.899 Other long term (current) drug therapy; Z83.3 Family history of diabetes mellitus; Z82.49 Family history of ischemic heart disease and other diseases of the circulatory system

== ENCOUNTER 2017-06-30 02:55 | Emergency (ER) | payer OTHER ==
[~2017-06-30] VITALS: Ht 185.4 cm; Wt 48.9 kg
[~2017-06-30 02:55] MED LIST changes: -CHOL100027 PO; -CIPR-255 PO; -NITR100C PO; +SULF800T23 PO
[2017-06-30 03:00] VITALS: TEMP 36.5; Ht 185.4 cm; Wt 48.9 kg
--- NOTE | 2017-06-30 03:41 | EMERGENCY ROOM VISIT NOTE ---
History Report prepared by Lia: Tamara Kramer Under the Supervision of: Dr. Jill Garcia D.O. First contact with patient: 03:12 Chief Complaint: CATHETER REPLACEMENT Stated Complaint: JEAN BAPTISTE CATHETER CLOGGED History of Present Illness The patient is a 72 year old male who presents to the Emergency Room with complaints of an episode of a clogged Jean Baptiste catheter. [facility] The patient does not flush his catheter at home. He denies any abdominal pain or fevers. On examination, nursing staff replaced the patient 's catheter and irrigated his bladder. The patient uses an inhaler but states he ran out of his. Source of History: patient Position: other (jean baptiste catheter) Quality: other (blocked) Timing: other (episode) Associated Symptoms: No fevers, No abdominal pain Review of Systems See HPI for pertinent positives & negatives. A total of 10 systems reviewed and were otherwise negative. Past Medical & Surgical Medical Problems: (1) Benign hypertension (2) COPD (chronic obstructive pulmonary disease) (3) Multiple orthopedic surgeries (4) Pneumonia (5) Syncope (6) Syncope Family History Diabetes mellitus Heart disease Hypertension Social History Smoking Status: Current Every Day Smoker Alcohol Use: occasionally Marital Status: single Housing Status: lives with friends Occupation Status: retired Current/Historical Medications Scheduled Aspirin (Aspirin Low Dose), 81 MG PO QD@1200 Budesonide/Formoterol Fumarate (Symbicort 160/4.5 Inhaler ), 1 PUFF INH BID Lisinopril (Lisinopril), 5 MG PO QD@1200 Sulfamethoxazole-Trimethoprim (Bactrim Ds 800MG/160MG), 1 TAB PO BID Tiotropium [place] (Spiriva Handihaler), 1 CAP INH QAM Scheduled PRN Albuterol Hfa (Ventolin Hfa), 2 PUFFS INH QID PRN for Wheezing Allergies Coded Allergies: No Known Allergies (Verified , 06/30/17) Physical Exam Vital Signs Date Time Temp Pulse Resp B/P (MAP) Pulse Ox O2 Delivery O2 Flow Rate FiO2 06/30/17 04:17 84 20 139/93 94 06/30/17 03:00 36.5 112 20 159/99 95 Room Air Physical Exam Heart: Regular rate and rhythm. There is a normal S1 and S2 with no murmurs, clicks, or gallops appreciated. Lungs: Inspiratory and expiratory wheezes. Abdomen: Soft, completely nontender, nondistended, with good bowel sounds. There are no palpable pulsatile masses or hepatosplenomegaly. There is no guarding, rigidity, or rebound noted. Skin: warm and dry with good turgor and no rashes. Medical Decision & Procedures Laboratory Results Test 06/30/17 03:30 Urine Color YELLOW Urine Appearance CLOUDY (CLEAR) Urine pH 7.5 (4.5-7.5) Urine Specific [place] 1.016 (1.000-1.030) Urine Protein NEG (NEG) Urine Glucose (UA) NEG (NEG) Urine Ketones NEG (NEG) Urine Occult Blood 3+ (NEG) Urine Nitrite POS (NEG) Urine Bilirubin NEG (NEG) Urine Urobilinogen NEG (NEG) Urine Leukocyte Esterase LARGE (NEG) Urine WBC (Auto) >30 /hpf (0-5) Urine RBC (Auto) >30 /hpf (0-4) Urine Hyaline Casts (Auto) 5-10 /lpf (0-5) Urine Epithelial Cells (Auto) 0-5 /lpf (0-5) Urine Bacteria (Auto) NEG (NEG) Laboratory results per my review. Medications Administered Medications (Trade) Dose Ordered Sig/Emy Route Start Time Stop Time Status Last Admin Dose Admin Albuterol (Ventolin Hfa Inhaler) 2 puffs NOW ONCE INH 06/30/17 03:45 06/30/17 03:46 DC 06/30/17 03:43 2 PUFFS Trimethoprim/ Sulfamethoxazole (Septra Ds 800/ 160MG Tab) 1 tab NOW STAT PO 06/30/17 04:04 06/30/17 04:05 DC 06/30/17 04:12 1 TAB Procedure Albuterol INH, Trimethoprim/Sulfamethoxazole PO. ED Course 0331: Past medical records reviewed. The patient was evaluated in room A3. A complete history and physical exam was performed. Nursing staff attempted to irrigate his Jean Baptiste catheter but were unsuccessful. At that point, they replaced it. They sent a specimen for urinalysis. It appears to be infected. 0345: The patient was wheezing on physical exam and stated that he was out of his inhaler. He was given Albuterol 2 puffs INH. 0404: Trimethoprim/Sulfamethoxazole 1 tab PO Medical Decision The patient is a 72 year old male who presents to the Emergency Room with complaints of an episode of a clogged Jean Baptiste catheter. Differential diagnosis includes: urinary retention, clogged Jean Baptiste catheter, UTI. Lab results show: urinalysis appears to be infected. This is a 72-year-old male patient with an indwelling Jean Baptiste catheter that is blocked. The catheter was replaced. Urinalysis appeared to be infected and the patient was started on Bactrim. Medication Reconcilliation Current Medication List: was personally reviewed by me Blood Pressure Screening Patient's blood pressure: Elevated blood pressure Blood pressure disposition: Elevated BP felt to be situational Impression Primary Impression: Complication, blocked Jean Baptiste catheter Additional Impression: UTI (urinary tract infection) Scribe Attestation The scribe's documentation has been prepared under my direction and personally reviewed by me in its entirety. I confirm that the note above accurately reflects all work, treatment, procedures, and medical decision making performed by me. Departure Information Dispostion Home / Self-Care Prescriptions Sulfamethoxazole-Trimethoprim (Bactrim Ds 800MG/160MG) 1 Tab Tab 1 TAB PO BID, #14 TAB Prov: Jill Garcia D.O. 06/30/17 Referrals No Doctor, Assigned (PCP) Forms HOME CARE DOCUMENTATION FORM, IMPORTANT VISIT INFORMATION Patient Instructions My [facility] Additional Instructions Rest take plenty of clear liquids Return to the ER if you develop worsening symptoms or a fever. Bactrim - 1 tab. ever 12 hours for 7 days Problem Qualifiers Primary Impression: Complication, blocked Jean Baptiste catheter Encounter type: initial encounter Qualified Codes: T83.091A - Other mechanical complication of indwelling urethral catheter, initial encounter Additional Impression: UTI (urinary tract infection) Urinary tract infection type: acute cystitis Hematuria presence: with hematuria Qualified Codes: N30.01 - Acute cystitis with hematuria
[2017-06-30] MEDS ORDERED: ALBUTEROL HFA 8 GM INHALER INH ONE (03:45)
[2017-06-30 03:46] LABS: URINE APPEARANCE CLOUDY (CLEAR); URINE BILIRUBIN NEG (NEG); URINE COLOR YELLOW; URINE EPITHELIAL CELL AUTO 0-5 /lpf (0-5); URINE NITRITE POS (NEG); URINE PH 7.5 (4.5-7.5); URINE SPECIFIC GRAVITY 1.016 (1.000-1.030); UROBILINOGEN NEG (NEG)
[2017-06-30 03:47] LABS: MANUAL MICROSCOPIC REQUIRED? NO; REVIEW REQ? NO
[2017-06-30] MEDS ORDERED: SULFAMETHOXAZOLE/TRIMETHOPRIM DS 800/160MG TAB PO STA (04:04)
[2017-06-30] MEDS ORDERED: SULF800T23 PO (04:08)
[2017-06-30 04:17] VITALS: BP 139/93; PULSE 84; O2SAT 94
== END 2017-06-30 04:18 | disposition home or self-care (01) ==
LOC: C.EDB 02:56 → C.EDA 04:18
DX: T83.091A Other mechanical complication of indwelling urethral catheter, initial encounter (principal); N39.0 Urinary tract infection, site not specified; I10 Essential (primary) hypertension; J44.9 Chronic obstructive pulmonary disease, unspecified; Z79.82 Long term (current) use of aspirin; Z79.899 Other long term (current) drug therapy; Z87.01 Personal history of pneumonia (recurrent); Z82.49 Family history of ischemic heart disease and other diseases of the circulatory system; Z83.3 Family history of diabetes mellitus; F17.200 Nicotine dependence, unspecified, uncomplicated; Y84.6 Urinary catheterization as the cause of abnormal reaction of the patient, or of later complication, without mention of misadventure at the time of the procedure

== ENCOUNTER 2017-08-05 06:47 | Emergency (ER) | payer OTHER ==
[~2017-08-05] VITALS: Ht 185.4 cm; Wt 47.3 kg
[~2017-08-05 06:47] MED LIST changes: -SULF800T23 PO
[2017-08-05 06:50] VITALS: TEMP 36.5; Ht 185.4 cm; Wt 47.3 kg
--- NOTE | 2017-08-05 07:21 | EMERGENCY ROOM VISIT NOTE ---
History Report prepared by Lia: Radha Piña Under the Supervision of: Dr. Tye Aparicio M.D. First contact with patient: 06:54 Chief Complaint: CATHETER REPLACEMENT Stated Complaint: FOLY CATH CLOGGED History of Present Illness The patient is a 72 year old white male with a past medical history of hypertension, COPD, emphysema, urinary retention and an enlarged prostate who presents to the ED with a cc of a persistent clogged An catheter beginning 30 minutes prior to arrival. Positive suprapubic abdominal pressure, shortness of breath and cough. Negative hematuria, dysuria. He currently rate his discomfort as a 6/10 in severity. The patient states that he attempted to drain his An catheter 30 minutes prior to arrival, noting only some slight drainage. Source of History: patient Onset: 30 minutes prior to arrival Position: other (global) Symptom Intensity: 6/10 Quality: other (clogged An catheter) Timing: other (persistent) Associated Symptoms: + cough, + SOB, + abdominal pain (suprapubic), No urinary symptoms Review of Systems See HPI for pertinent positives and negatives. A total of ten systems were reviewed and were otherwise negative. Past Medical & Surgical Medical Problems: (1) Benign hypertension (2) COPD (chronic obstructive pulmonary disease) (3) Multiple orthopedic surgeries (4) Pneumonia (5) Syncope (6) Syncope Family History Diabetes mellitus Heart disease Hypertension Social History Smoking Status: Current Every Day Smoker Alcohol Use: occasionally Marital Status: single Housing Status: lives with friends Occupation Status: retired Current/Historical Medications Scheduled Albuterol Hfa (Ventolin Hfa), 2-4 PUFFS INH Q6H Aspirin (Aspirin Low Dose), 81 MG PO QD@1200 Budesonide/Formoterol Fumarate (Symbicort 160/4.5 Inhaler ), 1 PUFF INH BID Ciprofloxacin (Ciprofloxacin HCl), 500 MG PO BID Lisinopril (Lisinopril), 5 MG PO QD@1200 Tiotropium [place] (Spiriva Handihaler), 1 CAP INH QAM Scheduled PRN Albuterol Hfa (Ventolin Hfa), 2 PUFFS INH QID PRN for Wheezing Allergies Coded Allergies: No Known Allergies (Verified , 06/30/17) Physical Exam Vital Signs Date Time Temp Pulse Resp B/P (MAP) Pulse Ox O2 Delivery O2 Flow Rate FiO2 08/05/17 09:21 98 20 137/88 95 Room Air 08/05/17 06:50 36.5 123 18 115/79 92 Room Air Physical Exam GENERAL: Awake, alert, well-appearing, NAD, thin in appearance. HENT: Normocephalic, atraumatic. EYES: Normal conjunctiva. Sclera non-icteric. NECK: Supple. No nuchal rigidity. FROM. RESPIRATORY: Expiratory wheezes, no rhonchi, crackles CARDIAC: RRR, no MRG ABDOMEN: Soft, Suprapubic fullness, right sided lower abdominal hernia that is reducible, BS+ : An in place. MSK: No chest wall TTP, no LE edema, Surgical scar over the right knee NEURO: GCS 15, CN 2-12 intact, moves all 4s on command SKIN: No rash or jaundice noted. Medical Decision & Procedures Laboratory Results 08/05/17 07:15 Red Blood Count 4.60, Mean Corpuscular Volume 91.3, Mean Corpuscular Hemoglobin 30.7, Mean Corpuscular Hemoglobin Concent 33.6, Mean Platelet Volume 9.3, Neutrophils (%) (Auto) 72.8, Lymphocytes (%) (Auto) 17.7, Monocytes (%) (Auto) 7.9, Eosinophils (%) (Auto) 0.6, Basophils (%) (Auto) 0.8, Neutrophils # (Auto) 7.76, Lymphocytes # (Auto) 1.88, Monocytes # (Auto) 0.84, Eosinophils # (Auto) 0.06, Basophils # (Auto) 0.08 08/05/17 07:15 Test 08/05/17 00:00 08/05/17 07:15 Urine Color YELLOW Urine Appearance TURBID (CLEAR) Urine pH 6.5 (4.5-7.5) Urine Specific [place] 1.014 (1.000-1.030) Urine Protein 1+ (NEG) Urine Glucose (UA) NEG (NEG) Urine Ketones NEG (NEG) Urine Occult Blood 2+ (NEG) Urine Nitrite POS (NEG) Urine Bilirubin NEG (NEG) Urine Urobilinogen NEG (NEG) Urine Leukocyte Esterase LARGE (NEG) Urine WBC (Auto) >30 /hpf (0-5) Urine RBC (Auto) >30 /hpf (0-4) Urine Hyaline Casts (Auto) 1-5 /lpf (0-5) Urine Epithelial Cells (Auto) >30 /lpf (0-5) Urine Bacteria (Auto) 3+ (NEG) Urine Pathogenic Casts /lpf (0) Urine Yeast (Auto) (NONE PRSENT) White Blood Count 10.64 K/uL (4.8-10.8) Red Blood Count 4.60 M/uL (4.7-6.1) Hemoglobin 14.1 g/dL (14.0-18.0) Hematocrit 42.0 % (42-52) Mean Corpuscular Volume 91.3 fL (80-100) Mean Corpuscular Hemoglobin 30.7 pg (25-34) Mean Corpuscular Hemoglobin Concent 33.6 g/dl (32-36) Platelet Count 391 K/uL (130-400) Mean Platelet Volume 9.3 fL (7.4-10.4) Neutrophils (%) (Auto) 72.8 % Lymphocytes (%) (Auto) 17.7 % Monocytes (%) (Auto) 7.9 % Eosinophils (%) (Auto) 0.6 % Basophils (%) (Auto) 0.8 % Neutrophils # (Auto) 7.76 K/uL (1.4-6.5) Lymphocytes # (Auto) 1.88 K/uL (1.2-3.4) Monocytes # (Auto) 0.84 K/uL (0.11-0.59) Eosinophils # (Auto) 0.06 K/uL (0-0.5) Basophils # (Auto) 0.08 K/uL (0-0.2) RDW Standard Deviation 47.6 fL (36.4-46.3) RDW Coefficient of Variation 14.1 % (11.5-14.5) Immature Granulocyte % (Auto) 0.2 % Immature Granulocyte # (Auto) 0.02 K/uL (0.00-0.02) Anion Gap 7.0 mmol/L (3-11) Est Creatinine Clear Calc Drug Dose 53.5 ml/min Estimated GFR () 101.8 Estimated GFR (Non- 87.9 BUN/Creatinine Ratio 15.5 (10-20) Calcium Level 8.9 mg/dl (8.5-10.1) Laboratory results reviewed by me Medications Administered Medications (Trade) Dose Ordered Sig/Emy Route Start Time Stop Time Status Last Admin Dose Admin Ciprofloxacin (Cipro Tab) 500 mg NOW STAT PO 08/05/17 09:06 08/05/17 09:08 DC 08/05/17 09:22 500 MG ECG Indication: SOB/dyspnea Rate (beats per minute): 99 Rhythm: normal sinus Findings: Q waves (Anterior), T-wave inversion (AVL), other (right axis deviation, normal intervals, no other STS changes or TWI) Comparison ECG Date: 02/2014 Change: no significant change ED Course 0700: The patient was evaluated in room B11B. A complete history and physical exam was performed by Dr. Hoff, 1st year Resident. 712: The patient was evaluated in room B11B. A complete history and physical exam was performed. 934: I reevaluated the patient and he is resting comfortably. I discussed the test results with him and I discussed the treatment plan. He verbalized complete understanding and agreement. He is ready to go home. Medical Decision Triage Nursing notes reviewed. The patient's presentation and history were concerning for Renal dysfunction, UTI, An catheter problem, BPH, dehydration. The patient is a 72 year old white male with a past medical history of hypertension, COPD, emphysema, urinary retention and an enlarged prostate who presents to the ED with a cc of a persistent clogged An catheter beginning 30 minutes prior to arrival. Patient was seen and evaluated at the bedside after being seen by the resident. Patient had complained of some suprapubic fullness and some difficulty with urination. Patient does have a chronic indwelling An catheter secondary to urinary retention secondary to BPH. Patient denies any numbness tingling or weakness. Patient denies any incontinence. Patient did have blood work that was completed along with a urinalysis. Patient's An was changed. Upon changing of the An catheter the patient did have possibly 1000 mL of output. Patient's urinalysis likely showed a bit of hemorrhagic cystitis. Prior sensitivities were sensitive to Cipro. Patient was given Cipro here and then was given a prescription for it as an outpatient. Patient had normal kidney function. Patient was also counseled on smoking cessation. Patient was deemed suitable for outpatient follow-up and treatment. Patient did have an EKG which showed no acute changes. His tachycardia upon initial presentation was likely secondary to urinary retention and/or obstruction. Patient tachycardia resolved. Patient was given strict follow-up, discharge, and return precautions. All questions were answered. Patient was deemed suitable for outpatient follow-up at this time. Patient agreed with the plan of care and was safely discharged home. Medication Reconcilliation Current Medication List: was personally reviewed by me Blood Pressure Screening Patient's blood pressure: Normal blood pressure Blood pressure disposition: Did not require urgent referral Impression Primary Impression: Encounter for smoking cessation counseling Additional Impressions: UTI (urinary tract infection) Complication of catheter Scribe Attestation The scribe's documentation has been prepared under my direction and personally reviewed by me in its entirety. I confirm that the note above accurately reflects all work, treatment, procedures, and medical decision making performed by me. Departure Information Dispostion Home / Self-Care Prescriptions Albuterol Hfa (VENTOLIN HFA) 200 Puffs/74332 Mcg Aers 2-4 PUFFS INH Q6H, #1 INHALER Prov: Adolph Hoff M.D. 08/05/17 Ciprofloxacin (Ciprofloxacin HCl) 500 Mg Tab 500 MG PO BID for 7 Days, #14 TAB Prov: Adolph Hoff M.D. 08/05/17 Referrals Tyrone Kennedy D.O. (PCP) Forms HOME CARE DOCUMENTATION FORM, IMPORTANT VISIT INFORMATION Patient Instructions ED Catheter Care Nataliya, LARON UTI Cystitis Male, My [facility] Additional Instructions Please return to the emergency department if you have worsening or recurrent symptoms not amenable to at-home treatment. Please call for a follow-up appointment with her primary care physician. Please take your medications as prescribed. If you have other concerns and/or complaints please feel free to also call your primary care physician's office or return the ED for further evaluation, management, and treatment. Take your medications as prescribed. If taking an antibiotic consider taking a probiotic and/or eating yogurt, but at the least, please take with food as it can cause upset stomach. If culture results are not available at discharge, if they are positive for concern of infection, you will be informed of the results as soon as they are available. You have been examined and treated today on an emergency basis only. This is not a substitute for, or an effort to provide, complete comprehensive medical care. It is impossible to recognize and treat all injuries or illnesses in a single emergency department visit. It is therefore important that you follow up closely with [facility], your PCP, and/or your specialist(s). Call as soon as possible for an appointment. Thank you for your time and consideration. I look forward to speaking with you again soon. Please don't hesitate to call us if you have any questions. Problem Qualifiers Additional Impressions: UTI (urinary tract infection) Urinary tract infection type: acute cystitis Hematuria presence: with hematuria Qualified Codes: N30.01 - Acute cystitis with hematuria Complication of catheter Encounter type: initial encounter Qualified Codes: T85.9XXA - Unspecified complication of internal prosthetic device, implant and graft, initial encounter
[2017-08-05 07:35] LABS: BASO % 0.8 %; BASO ABS # 0.08 K/uL (0-0.2); COMPLETE YES; EOS % 0.6 %; IG% 0.2 %; LYMPH % 17.7 %; LYMPH ABS # 1.88 K/uL (1.2-3.4); MEAN CELL VOLUME 91.3 fL (80-100); MEAN CORPUSCULAR HEMOGLOBIN 30.7 pg (25-34); MEAN CORPUSCULAR HGB CONC 33.6 g/dl (32-36); MEAN PLATELET VOLUME 9.3 fL (7.4-10.4); MONO % 7.9 %; NEUT % 72.8 %; PLATELET COUNT 391 K/uL (130-400); WHITE BLOOD COUNT 10.64 K/uL (4.8-10.8)
--- NOTE | 2017-08-05 07:35 | EMERGENCY ROOM VISIT NOTE ---
History First contact with patient: 06:56 Chief Complaint: CATHETER REPLACEMENT Stated Complaint: FOLY CATH CLOGGED History of Present Illness The patient is a 72 year old male who presents to the Emergency Room with complaints of clogged Hernandez catheter and suprapubic pressure x 1 day. Reports draining Hernandez 0.5hrs ago which did not help. Has Hernandez for chronic urinary retention due to BPH. Pt reports sob and cough are at baseline due to emphysema. Denies any dysuria, hematuria, f/c, cp, n/v, abdominal pain, VEGAS/dizziness. Review of Systems see below Constitutional: No fever, No chills Respiratory: + cough, + shortness of breath Cardiovascular: No chest pain Abdomen: + problem reported (suprapubic pressure/fullness sensation), No pain, No nausea, No vomiting Genitourinary - Male: No hematuria, No dysuria Neurologic: + problem reported (denies VEGAS/dizziness) Past Medical/Surgical History Medical Problems: (1) Benign hypertension (2) COPD (chronic obstructive pulmonary disease) (3) Multiple orthopedic surgeries (4) Pneumonia (5) Syncope (6) Syncope Family History Diabetes mellitus Heart disease Hypertension Social History Smoking Status: Current Every Day Smoker Alcohol Use: occasionally Marital Status: single Housing Status: lives with friends Occupation Status: retired Current/Historical Medications Scheduled Albuterol Hfa (Ventolin Hfa), 2-4 PUFFS INH Q6H Aspirin (Aspirin Low Dose), 81 MG PO QD@1200 Budesonide/Formoterol Fumarate (Symbicort 160/4.5 Inhaler ), 1 PUFF INH BID Ciprofloxacin (Ciprofloxacin HCl), 500 MG PO BID Lisinopril (Lisinopril), 5 MG PO QD@1200 Tiotropium [place] (Spiriva Handihaler), 1 CAP INH QAM Scheduled PRN Albuterol Hfa (Ventolin Hfa), 2 PUFFS INH QID PRN for Wheezing Physical Exam Vital Signs Date Time Temp Pulse Resp B/P (MAP) Pulse Ox O2 Delivery O2 Flow Rate FiO2 08/05/17 06:50 36.5 123 18 115/79 92 Room Air Physical Exam see below General Appearance: + thin Head: normocephalic, atraumatic Eyes: normal inspection Respiratory/Chest: + decreased breath sounds, + wheezing (mild expiratory wheezing) Cardiovascular: regular rate, rhythm, no murmur Abdomen / GI: normal bowel sounds, non tender, soft, + pertinent finding ( discomfort on suprapubic palpation; hernandez in place; leg bag) Genitourinary - Male: normal male genitalia Extremities: no pedal edema Neurologic/Psych: alert, oriented x 3 Medical Decision & Procedures Laboratory Results 08/05/17 07:15 Red Blood Count 4.60, Mean Corpuscular Volume 91.3, Mean Corpuscular Hemoglobin 30.7, Mean Corpuscular Hemoglobin Concent 33.6, Mean Platelet Volume 9.3, Neutrophils (%) (Auto) 72.8, Lymphocytes (%) (Auto) 17.7, Monocytes (%) (Auto) 7.9, Eosinophils (%) (Auto) 0.6, Basophils (%) (Auto) 0.8, Neutrophils # (Auto) 7.76, Lymphocytes # (Auto) 1.88, Monocytes # (Auto) 0.84, Eosinophils # (Auto) 0.06, Basophils # (Auto) 0.08 08/05/17 07:15 Test 08/05/17 00:00 08/05/17 07:15 Urine Color YELLOW Urine Appearance TURBID (CLEAR) Urine pH 6.5 (4.5-7.5) Urine Specific [place] 1.014 (1.000-1.030) Urine Protein 1+ (NEG) Urine Glucose (UA) NEG (NEG) Urine Ketones NEG (NEG) Urine Occult Blood 2+ (NEG) Urine Nitrite POS (NEG) Urine Bilirubin NEG (NEG) Urine Urobilinogen NEG (NEG) Urine Leukocyte Esterase LARGE (NEG) Urine WBC (Auto) >30 /hpf (0-5) Urine RBC (Auto) >30 /hpf (0-4) Urine Hyaline Casts (Auto) 1-5 /lpf (0-5) Urine Epithelial Cells (Auto) >30 /lpf (0-5) Urine Bacteria (Auto) 3+ (NEG) Urine Pathogenic Casts /lpf (0) Urine Yeast (Auto) (NONE PRSENT) White Blood Count 10.64 K/uL (4.8-10.8) Red Blood Count 4.60 M/uL (4.7-6.1) Hemoglobin 14.1 g/dL (14.0-18.0) Hematocrit 42.0 % (42-52) Mean Corpuscular Volume 91.3 fL (80-100) Mean Corpuscular Hemoglobin 30.7 pg (25-34) Mean Corpuscular Hemoglobin Concent 33.6 g/dl (32-36) Platelet Count 391 K/uL (130-400) Mean Platelet Volume 9.3 fL (7.4-10.4) Neutrophils (%) (Auto) 72.8 % Lymphocytes (%) (Auto) 17.7 % Monocytes (%) (Auto) 7.9 % Eosinophils (%) (Auto) 0.6 % Basophils (%) (Auto) 0.8 % Neutrophils # (Auto) 7.76 K/uL (1.4-6.5) Lymphocytes # (Auto) 1.88 K/uL (1.2-3.4) Monocytes # (Auto) 0.84 K/uL (0.11-0.59) Eosinophils # (Auto) 0.06 K/uL (0-0.5) Basophils # (Auto) 0.08 K/uL (0-0.2) RDW Standard Deviation 47.6 fL (36.4-46.3) RDW Coefficient of Variation 14.1 % (11.5-14.5) Immature Granulocyte % (Auto) 0.2 % Immature Granulocyte # (Auto) 0.02 K/uL (0.00-0.02) Anion Gap 7.0 mmol/L (3-11) Est Creatinine Clear Calc Drug Dose 53.5 ml/min Estimated GFR () 101.8 Estimated GFR (Non- 87.9 BUN/Creatinine Ratio 15.5 (10-20) Calcium Level 8.9 mg/dl (8.5-10.1) Medications Administered Received first dose of Ciprofloxacin 500mg prior to D/C Procedure replace Hernandez catheter ECG Indication: tachycardia Rate (beats per minute): 99 Rhythm: normal sinus Findings: other (Anterior Q waves, R axis deviation, T wave inversion aVL - all unchanged from 2013 EKG) Change: no significant change Medical Decision 72y/oM with hx of HTN, COPD, BPH on chronic Hernandez catheter presents with suprapubic pressure and urinary retention consistent with likely clogged Hernandez catheter vs. UTI vs. prostatitis -will replace hernandez -Ordered UA/UCx, CBC, BMP, and EKG (given tachycardia on presentation) -Results/Plan: -Dirty UA (will send for culture) treated with Ciprofloxacin 500mg BID x 7 days based on previous UCx/sensitivities; received first dose of Ciprofloxacin 500mg one prior to D/C and Rx sent to [facility]. -CBC, BMP wnl -EKG unchanged from previous EKG in 2013 (see above for interpretation) -Refilled Albuterol inhaler - sent Rx to [facility] Medication Reconcilliation Current Medication List: was personally reviewed by me Impression Primary Impression: Complication, blocked Hernandez catheter Additional Impression: Encounter for smoking cessation counseling Departure Information Prescriptions Albuterol Hfa (VENTOLIN HFA) 200 Puffs/99616 Mcg Aers 2-4 PUFFS INH Q6H, #1 INHALER Prov: Adolph Hoff M.D. 08/05/17 Ciprofloxacin (Ciprofloxacin HCl) 500 Mg Tab 500 MG PO BID for 7 Days, #14 TAB Prov: Adolph Hoff M.D. 08/05/17 Referrals Tyrone Kennedy D.O. (PCP) Patient Instructions My [facility] Problem Qualifiers
[2017-08-05 07:58] LABS: URINE APPEARANCE TURBID (CLEAR); URINE BILIRUBIN NEG (NEG); URINE COLOR YELLOW; URINE EPITHELIAL CELL AUTO >30 /lpf (0-5); URINE NITRITE POS (NEG); URINE PH 6.5 (4.5-7.5); URINE SPECIFIC GRAVITY 1.014 (1.000-1.030); UROBILINOGEN NEG (NEG); ZZUR CULT IF INDIC CLEAN CATCH YES
[2017-08-05 08:02] LABS: BUN/CREATININE RATIO 15.5 (10-20); CALCIUM 8.9 mg/dl (8.5-10.1); CREATININE 0.86 mg/dl (0.60-1.40); POTASSIUM 3.8 mmol/L (3.5-5.1)
[2017-08-05 08:05] LABS: MANUAL MICROSCOPIC REQUIRED? NO; REVIEW REQ? YES
[2017-08-05] MEDS ORDERED: CPR/500 PO (09:06)
[2017-08-05] MEDS ORDERED: CIPROFLOXACIN 500 MG TAB PO STA (09:06)
[2017-08-05] MEDS ORDERED: VNTHFA/IN INH (09:12)
[2017-08-05 09:21] VITALS: BP 137/88; PULSE 98; O2SAT 95
--- NOTE | 2017-08-07 11:56 | Pharmacy Progress Note ---
ED Pharmacist Culture FollowUp Date of Service: Aug 07, 2017. Patient was sent home with a prescription for cipro 500mg BID X 7 days, which should cover the E. Coli growing from the patient's urine culture.
== END 2017-08-05 08:50 | disposition home or self-care (01) ==
LOC: C.EDB 06:48
DX: T83.091A Other mechanical complication of indwelling urethral catheter, initial encounter (principal); X58.XXXA Exposure to other specified factors, initial encounter; Z71.6 Tobacco abuse counseling; I10 Essential (primary) hypertension; J44.9 Chronic obstructive pulmonary disease, unspecified; F17.200 Nicotine dependence, unspecified, uncomplicated; Z98.890 Other specified postprocedural states; Z79.82 Long term (current) use of aspirin; Z79.899 Other long term (current) drug therapy; Z83.3 Family history of diabetes mellitus; Z82.49 Family history of ischemic heart disease and other diseases of the circulatory system

== ENCOUNTER 2017-09-10 09:03 | Emergency (ER) | payer OTHER ==
[~2017-09-10] VITALS: Ht 185.4 cm; Wt 47.9 kg
[~2017-09-10 09:03] MED LIST changes: +CPR/500 PO
[2017-09-10 09:08] VITALS: Ht 185.4 cm; Wt 47.9 kg
[2017-09-10] MEDS ORDERED: ALBUT/IPRATROP 3MG/0.5MG NEB 3 ML VIAL INH STA (09:32)
--- NOTE | 2017-09-10 09:32 | EMERGENCY ROOM VISIT NOTE ---
History Report prepared by Lia: Adalberot Mcguire Under the Supervision of: Dr. Ramiro Gonsalez D.O. First contact with patient: 09:19 Chief Complaint: OTHER COMPLAINT Stated Complaint: JEAN BAPTISTE CATH CLOGGED History of Present Illness The patient is a 72 year old male who presents to the Emergency Room with complaints of a clogged Jean Baptiste catheter that clogged after he eptied the bag last night at 1900, 14.5 hours prior to arrival. The patient had the Jean Baptiste changed on 08/03, 1 month ago. He has the catheter in place due to prostate hypertrophy. The patient is also complaining of abdominal pain and distention. 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 A total of 6 systems reviewed and were otherwise negative. Past Medical & Surgical Medical Problems: (1) Benign hypertension (2) COPD (chronic obstructive pulmonary disease) (3) Multiple orthopedic surgeries (4) Pneumonia (5) Syncope (6) Syncope Family History Diabetes mellitus Heart disease Hypertension Social History Smoking Status: Former Smoker Alcohol Use: occasionally Marital Status: single Housing Status: lives with friends Occupation Status: retired Current/Historical Medications Scheduled Albuterol Hfa (Ventolin Hfa), 2-4 PUFFS INH Q6H Albuterol Hfa (Ventolin Hfa), 1 PUFF INH Q4 Aspirin (Aspirin Low Dose), 81 MG PO QD@1200 Budesonide/Formoterol Fumarate (Symbicort 160/4.5 Inhaler ), 1 PUFF INH BID Ciprofloxacin Hcl (Cipro), 500 MG PO BID Lisinopril (Lisinopril), 5 MG PO QD@1200 Tiotropium [place] (Spiriva Handihaler), 1 CAP INH QAM Scheduled PRN Albuterol Hfa (Ventolin Hfa), 2 PUFFS INH QID PRN for Wheezing Allergies Coded Allergies: No Known Allergies (Verified , 09/10/17) Physical Exam Vital Signs Date Time Temp Pulse Resp B/P (MAP) Pulse Ox O2 Delivery O2 Flow Rate FiO2 09/10/17 10:35 36.3 91 22 117/84 95 09/10/17 10:17 91 22 117/84 95 1/24/18 09:08 36.3 121 18 124/86 94 Room Air Physical Exam GENERAL: Patient is awake, alert, and in no acute distress. Patient is resting comfortably and showing no signs of anxiety EYES: The conjunctivae are clear. The pupils are round and reactive. EARS, NOSE, MOUTH AND THROAT: The nose is without any evidence of any deformity. Mucous membranes are moist tongue is midline NECK: The neck is nontender and supple. RESPIRATORY: Breath sounds are diminished throughout with scattered wheezing present. CARDIOVASCULAR: Regular rate and rhythm noted there no murmurs rubs or gallops normal S1 normal S2 GASTROINTESTINAL: The abdomen is soft but mildly distended. . Bowel sounds are present in all quadrants. Abdomen is tender to the suprapubic region with palpation. MUSCULOSKELETAL/EXTREMITIES: There is no evidence of gross deformity full range of motion is noted in the hips and shoulders SKIN: There is no obvious evidence of any rash. There are no petechiae, pallor or cyanosis noted. NEUROLOGIC: Patient is awake alert and oriented x3 Medical Decision & Procedures Laboratory Results Test 09/10/17 09:55 Urine Color YELLOW Urine Appearance CLOUDY (CLEAR) Urine pH 7.5 (4.5-7.5) Urine Specific [place] 1.015 (1.000-1.030) Urine Protein NEG (NEG) Urine Glucose (UA) NEG (NEG) Urine Ketones NEG (NEG) Urine Occult Blood 2+ (NEG) Urine Nitrite POS (NEG) Urine Bilirubin NEG (NEG) Urine Urobilinogen NEG (NEG) Urine Leukocyte Esterase LARGE (NEG) Urine WBC (Auto) >30 /hpf (0-5) Urine RBC (Auto) >30 /hpf (0-4) Urine Hyaline Casts (Auto) 5-10 /lpf (0-5) Urine Epithelial Cells (Auto) 0-5 /lpf (0-5) Urine Bacteria (Auto) 3+ (NEG) Urine Crystals CALCIUM OXALATE (NONE Urine Yeast (Auto) (NONE PRSENT) Laboratory results per my review. Medications Administered Medications (Trade) Dose Ordered Sig/Emy Route Start Time Stop Time Status Last Admin Dose Admin Albuterol/ Ipratropium (Duoneb) 3 ml NOW STAT INH 09/10/17 09:32 09/10/17 09:34 DC 09/10/17 09:59 3 ML Ciprofloxacin (Cipro Tab) 500 mg NOW STAT PO 09/10/17 10:18 1/24/18 10:19 DC 09/10/17 10:26 500 MG ED Course 0921: The patient was evaluated in room C3. A complete history and physical examination were performed. 0932: Ordered Duoneb 3 mL INH. 1018: Ordered Ciprofloxacin 500 mg PO. 1058: Upon reevaluation, the patient is resting and had relief of his abdominal distention with Jean Baptiste replacement. I discussed the results and treatment plan with him. He verbalized agreement of the treatment plan. The patient was discharged home. Medical Decision Patient presents for Jean Baptiste Catheter placement. Nursing notes reviewed. The patient is a 72-year-old male who presented to the emergency department because of full a catheter malfunction. The patient has a history of indwelling Jean Baptiste catheter. It becomes obstructed from time to time. The patient had a Jean Baptiste catheter replaced and had signs of a catheter associated urinary tract infection. The patient's previous urine infections showed positive for Klebsiella. He also has had yeast in his urine in the past. The patient was treated with a DuoNeb in the emergency department. He was also given a prescription for his DuoNeb because his current one is running out. He was encouraged to continue stopping tobacco products. He was also started on antibiotic. He was also encouraged to follow-up with his family doctor but return to the emergency department immediately symptoms change worsen or the need arises. Impression Primary Impression: Obstructed Jean Baptiste catheter Additional Impressions: Encounter for Jean Baptiste catheter replacement COPD (chronic obstructive pulmonary disease) UTI (urinary tract infection) Scribe Attestation The scribe's documentation has been prepared under my direction and personally reviewed by me in its entirety. I confirm that the note above accurately reflects all work, treatment, procedures, and medical decision making performed by me. Departure Information Dispostion Home / Self-Care Prescriptions Ciprofloxacin Hcl (CIPRO) 500 Mg Tab 500 MG PO BID, #14 TAB Prov: Ramiro Gonsalez, DO 09/10/17 Albuterol Hfa (VENTOLIN HFA) 200 Puffs/82861 Mcg Aers 1 PUFF INH Q4, #1 INHALER Prov: Ramiro Gonsalez, DO 09/10/17 Referrals Tyrone Kennedy D.OGabriel (PCP) Forms HOME CARE DOCUMENTATION FORM, IMPORTANT VISIT INFORMATION, WORK / SCHOOL INSTRUCTIONS Patient Instructions My [facility] Additional Instructions Call your family to schedule a follow-up appointment this week. Continue all medications as prescribed. Drink plenty of clear liquids. Return to emergency department immediately if symptoms change worsen or the need arises. Problem Qualifiers Primary Impression: Obstructed Jean Baptiste catheter Encounter type: initial encounter Qualified Codes: T83.091A - Other mechanical complication of indwelling urethral catheter, initial encounter Additional Impressions: COPD (chronic obstructive pulmonary disease) COPD type: unspecified COPD Qualified Codes: J44.9 - Chronic obstructive pulmonary disease, unspecified UTI (urinary tract infection) Urinary tract infection type: catheter-associated UTI Indwelling urinary catheter type: indwelling urethral catheter Encounter type: initial encounter Qualified Codes: T83.511A - Infection and inflammatory reaction due to indwelling urethral catheter, initial encounter; N39.0 - Urinary tract infection, site not specified
[2017-09-10] MEDS ORDERED: VNTHFA/IN INH (10:17)
[2017-09-10] MEDS ORDERED: CIPR-255 PO (10:17)
[2017-09-10] MEDS ORDERED: CIPROFLOXACIN 500 MG TAB PO STA (10:18)
[2017-09-10 10:35] VITALS: BP 117/84; PULSE 91; TEMP 36.3; O2SAT 95
--- NOTE | 2017-09-12 14:40 | Pharmacy Progress Note ---
ED Pharmacist Culture FollowUp Date of Service: Sep 12, 2017. Patient was discharged on cipro 500mg BID due to past culture history. The culture grew coag negative staph. I faxed a copy of the result to the patient's PCP at the [facility], Dr. Kennedy at the confirmed number of [phone]. The nurse stated the doctor would evaluate if additional antibiotics are needed and call us back with what antibiotics were prescribed.
== END 2017-09-10 10:35 | disposition home or self-care (01) ==
LOC: C.EDB 09:05 → C.EDC 10:35
DX: Z46.6 Encounter for fitting and adjustment of urinary device (principal); T83.511A Infection and inflammatory reaction due to indwelling urethral catheter, initial encounter; Y84.6 Urinary catheterization as the cause of abnormal reaction of the patient, or of later complication, without mention of misadventure at the time of the procedure; N40.0 Benign prostatic hyperplasia without lower urinary tract symptoms; R10.9 Unspecified abdominal pain; I10 Essential (primary) hypertension; J44.9 Chronic obstructive pulmonary disease, unspecified; Z79.82 Long term (current) use of aspirin; Z87.891 Personal history of nicotine dependence; Z83.3 Family history of diabetes mellitus; Z82.49 Family history of ischemic heart disease and other diseases of the circulatory system

== ENCOUNTER 2017-09-17 08:14 | Emergency (ER) | payer OTHER ==
[~2017-09-17] VITALS: Ht 185.4 cm; Wt 46.0 kg
[~2017-09-17 08:14] MED LIST changes: +CIPR-255 PO; -CPR/500 PO
[2017-09-17 08:16] VITALS: Ht 185.4 cm; Wt 46.0 kg
[2017-09-17] MEDS ORDERED: SPT/ PO (09:26)
--- NOTE | 2017-09-17 09:48 | EMERGENCY ROOM VISIT NOTE ---
History First contact with patient: 08:29 Chief Complaint: OTHER COMPLAINT Stated Complaint: JEAN BAPTISTE CATH CLOGGED History of Present Illness The patient is a 72 year old male who presents to the Emergency Room via private vehicle with complaints of "Jean Baptiste catheter clogged". The patient states that he has a indwelling Jean Baptiste catheter for his prostate enlargement, causing him difficulty with regular urination. He was here about one week ago and had his Jean Baptiste replaced. He states he is placed on Cipro, but then received a phone call up on urine culture results and was changed to Bactrim. He states that he is currently still taking the Bactrim. He notes no fevers, chills or any other symptoms other than mild suprapubic tenderness secondary to what he believes to be urinary retention. Review of Systems A complete 10-point Review of Systems was discussed with the patient, with pertinent positives and negatives listed in the History of Present Illness. All remaining Review of Systems questions can be considered negative unless otherwise specified. Past Medical/Surgical History Medical Problems: (1) Benign hypertension (2) COPD (chronic obstructive pulmonary disease) (3) Multiple orthopedic surgeries (4) Pneumonia (5) Syncope (6) Syncope Family History Diabetes mellitus Heart disease Hypertension Social History Smoking Status: Current Every Day Smoker Alcohol Use: occasionally Marital Status: single Housing Status: lives with friends Occupation Status: retired Current/Historical Medications Scheduled Albuterol Hfa (Ventolin Hfa), 2-4 PUFFS INH Q6H Albuterol Hfa (Ventolin Hfa), 1 PUFF INH Q4 Aspirin (Aspirin Low Dose), 81 MG PO QD@1200 Budesonide/Formoterol Fumarate (Symbicort 160/4.5 Inhaler ), 1 PUFF INH BID Lisinopril (Lisinopril), 5 MG PO QD@1200 Tiotropium [place] (Spiriva Handihaler), 1 CAP INH QAM Trimethoprim/Sulfamethoxazole (Bactrim 400MG/80MG), 1 TAB PO Q12H Scheduled PRN Albuterol Hfa (Ventolin Hfa), 2 PUFFS INH QID PRN for Wheezing Physical Exam Vital Signs Date Time Temp Pulse Resp B/P (MAP) Pulse Ox O2 Delivery O2 Flow Rate FiO2 09/17/17 09:59 36.4 104 18 110/66 95 09/17/17 09:57 104 18 110/66 95 Room Air 09/17/17 09:09 89 26 117/80 97 Room Air 09/17/17 08:33 117/80 09/17/17 08:16 36.4 93 26 97 Room Air Physical Exam VITAL SIGNS - Vital signs and nursing notes were reviewed. Stable. GENERAL -72-year-old male appearing his stated age who is in no acute distress. Communicates well with provider and answers questions appropriately. SKIN - Without rashes. No petechial rashes. : Penis unremarkable and the insertion site of the catheter also unremarkable. There is no bloody drainage. No pus. No CVA tenderness. Medical Decision & Procedures Laboratory Results Test 09/17/17 09:03 Urine Color YELLOW Urine Appearance CLOUDY (CLEAR) Urine pH 7.0 (4.5-7.5) Urine Specific [place] 1.019 (1.000-1.030) Urine Protein 2+ (NEG) Urine Glucose (UA) NEG (NEG) Urine Ketones NEG (NEG) Urine Occult Blood 3+ (NEG) Urine Nitrite NEG (NEG) Urine Bilirubin NEG (NEG) Urine Urobilinogen NEG (NEG) Urine Leukocyte Esterase LARGE (NEG) Urine WBC (Auto) >30 /hpf (0-5) Urine RBC (Auto) >30 /hpf (0-4) Urine Hyaline Casts (Auto) 1-5 /lpf (0-5) Urine Epithelial Cells (Auto) 20-30 /lpf (0-5) Urine Bacteria (Auto) NEG (NEG) Urine Yeast (Auto) (NONE PRSENT) Medical Decision Patient was seen and evaluated as above. He presents to us today with a clogged Jean Baptiste catheter. This was placed 1 week ago, and I extensively reviewed his previous visits. He seems to have a chronic indwelling Jean Baptiste catheter for his prostate enlargement. I did have the Jean Baptiste flushed, and this was with ease. I was informed that the patient did have several kinks in the tubing as well as the pressure strap to fix the back to his leg directly over the bag likely create pressure preventing the drainage in the bag. This was adjusted and then the urine flowed easily. He had just over 3 and a cc of urine in the bladder which drained without difficulty. He was reevaluated and feeling much better. Urinalysis was obtained and sent for culture. This was compared to previous and appears to be an improvement. With lack of urinary symptoms, I will allow him to continue the Bactrim and follow up as scheduled. He is to return with worsening. He was educated upon management, educated upon worrisome symptoms which to return, had questions about discharge, and was discharged home in good condition. I did discuss the case with the attending physician. Medication list was reviewed. He is homicidal hypertensive I believe secondary to situation. In evaluation and treatment of this patient the following differential diagnoses were entertained: Urinary retention, UTI, Jean Baptiste catheter malfunction, among others. Impression Primary Impression: Complication, blocked Jean Baptiste catheter Departure Information Dispostion Home / Self-Care Condition GOOD Referrals Tyrone Kennedy D.O. (PCP) Patient Instructions My [facility] Additional Instructions You were seen in the emergency Department for a blocked Jean Baptiste catheter. At this time it is now draining well. Your urine is improved compared to last week. Please continue your medications. Please call your family doctor to schedule follow-up. Please return with any new/concerning symptoms.
[2017-09-17 09:59] VITALS: BP 110/66; PULSE 104; TEMP 36.4; O2SAT 95
--- NOTE | 2017-09-18 10:51 | EMERGENCY ROOM VISIT NOTE ---
ED Visit Note First contact with patient: 08:29 I have personally evaluated this patient examined her and reviewed the pertinent labs and data. I have discussed the case with Flavio Nix, the physician yard assistant and agree with the plan. Please refer to the PA note. This patient comes in with problems with his An catheter drain. It was irrigated and is now draining. On my exam, the patient now feels comfortable and his abdomen is benign and nontender. He's awake and talkative.. He is afebrile. His urine is clear in the An bag. He has no evidence to suggest acute infection or sepsis. He will be discharged home.
== END 2017-09-17 09:59 | disposition home or self-care (01) ==
LOC: C.EDB 08:15
DX: T83.091A Other mechanical complication of indwelling urethral catheter, initial encounter (principal); Y84.6 Urinary catheterization as the cause of abnormal reaction of the patient, or of later complication, without mention of misadventure at the time of the procedure; N40.1 Benign prostatic hyperplasia with lower urinary tract symptoms; I10 Essential (primary) hypertension; J44.9 Chronic obstructive pulmonary disease, unspecified; F17.200 Nicotine dependence, unspecified, uncomplicated; Z79.82 Long term (current) use of aspirin; Z79.51 Long term (current) use of inhaled steroids; Z83.3 Family history of diabetes mellitus; Z82.49 Family history of ischemic heart disease and other diseases of the circulatory system

== ENCOUNTER 2017-09-19 08:03 | Emergency (ER) | payer OTHER ==
[~2017-09-19] VITALS: Ht 185.4 cm; Wt 45.3 kg
[~2017-09-19 08:03] MED LIST changes: -CIPR-255 PO; +SPT/ PO
[2017-09-19 08:06] VITALS: TEMP 36.4; Ht 185.4 cm; Wt 45.3 kg
--- NOTE | 2017-09-19 08:56 | EMERGENCY ROOM VISIT NOTE ---
ED Visit Note First contact with patient: 08:23 I have personally seen and evaluated the patient with the physician nutritional assistant. I agree with the diagnostic/management decisions and have personally been involved in these decisions and agree with the diagnosis.
[2017-09-19 09:26] VITALS: BP 106/77; PULSE 101; O2SAT 96
--- NOTE | 2017-09-20 17:05 | EMERGENCY ROOM VISIT NOTE ---
ED Visit Note First contact with patient: 08:23 Chief Complaint: My An catheter is clogged. History of Present Illness: Mr. Mendenhall is a 72-year-old white male who is brought into the ED via wheelchair complaining of a clogged An catheter. Patient reports he wears a An catheter for an enlarged prostrate which causes him difficulty urinating frequently. His current An catheter was placed 3 days ago. He reports when he left the emergency department at that time it was flowing normally then last night had approximately 7 PM it stopped draining. Since that time he has seen no additional drainage from a An catheter. Associated with the block catheter he is also reporting he is having suprapubic pain. He describes this as a pressure sensation. He rates his discomfort 7/ 10. His pain was worse on the drive over to the hospital due to the bouncing car and minimally with palpation. He has not identified any alleviating factors related to this discomfort. Has not taken any medication for this discomfort prior to arrival at the hospital. He denies any associated symptoms including fevers, chills, sweats, skin eruptions, skin color changes, urinary tract symptoms, back pain, flank pain, nausea/vomiting. Additionally he does report that he is currently taken Bactrim from a previous diagnosed urinary tract infection. Review of Systems: As noted above in History of Present Illness; at least 7 body systems were reviewed with the patient and found to be negative unless noted above otherwise. Past Medical History: (1) Benign hypertension (2) COPD (chronic obstructive pulmonary disease) (3) Multiple orthopedic surgeries (4) Pneumonia (5) Syncope Current Medication: Medications Dose Route/Sig Max Daily Dose Days Date Category Bactrim 400MG/80MG (Trimethoprim/Sulfamethoxazole) 1 Ea Tab 1 Tab PO Q12H 09/17/17 Reported Symbicort 160/4.5 Inhaler (Budesonide/Formoterol Fumarate) Unknown Strength Aero 1 Puff INH BID 02/12/17 Reported Ventolin Hfa (Albuterol) 200 Puffs/53196 Mcg Aers 2 Puffs INH QID PRN 09/05/16 Reported Aspirin Low Dose (Aspirin) 81 Mg Tab 81 Mg PO QD@1200 07/01/16 Reported Spiriva Handihaler (Tiotropium [place]) 30 Puff/540 Mcg Aerp 1 Cap INH QAM 02/13/16 Reported Lisinopril 5 Mg Tab 5 Mg PO QD@1200 09/01/14 Reported Allergies to Medications: Patient denies. Social History: Is not currently employed; he feels safe in his home environment ; he admits to tobacco use and alcohol use. Physical Examination: Vital Signs: Date Time Temp Pulse Resp B/P (MAP) Pulse Ox O2 Delivery O2 Flow Rate FiO2 09/19/17 09:26 101 22 106/77 96 09/19/17 08:22 102/78 09/19/17 08:06 36.4 74 20 98 Room Air GENERAL: 72-year-old white male in mild distress due to pain, chronically ill- appearing, afebrile and hemodynamically stable. NEUROLOGICAL: Awake, alert and oriented 3. Answering questions appropriately, following commands. SKIN: Warm, dry and pink. ABDOMEN: Distended in the suprapubic area. Soft and mildly tender to the suprapubic area. Positive bowel sounds in all quadrants. No guarding, rigidity. GENITALS: Normal appearing mature penis. No drainage from the penis. The catheter is in place. There is no lesions or tenderness throughout the scrotum or testicles. ED Course: Patient is assessed as noted above per Patient's medication list was reviewed. Patient had his catheter removed and a new catheter was inserted by nursing staff. He drained approximately 700 mL of dark urine from the catheter and on reassessment he reported he was pain-free. Patient's case was reviewed with Dr. Márquez; he and apparently assessed the patient we agreed on diagnostic approach, treatment, disposition and plan. Patient is educated about today's findings and instructed on his treatment plan ; he verbalized understanding and agreement with this plan. Disposition: Patient discharged home in stable condition; prior to departure he was reassessed and subjectively reported that he was pain and symptom-free. Plan: Patient was encouraged to continue his current medications as prescribed. Patient was encouraged to follow-up with his primary care provider. Patient was encouraged return ED for any other concerning catheter problems, fevers or any new/concerning symptoms.
== END 2017-09-19 09:26 | disposition home or self-care (01) ==
LOC: C.EDB 08:04
DX: T83.098A Other mechanical complication of other urinary catheter, initial encounter (principal); Y84.6 Urinary catheterization as the cause of abnormal reaction of the patient, or of later complication, without mention of misadventure at the time of the procedure; I10 Essential (primary) hypertension; J44.9 Chronic obstructive pulmonary disease, unspecified; Z72.0 Tobacco use; Z87.01 Personal history of pneumonia (recurrent); Z79.82 Long term (current) use of aspirin; Z79.899 Other long term (current) drug therapy

== ENCOUNTER 2017-10-11 19:53 | Emergency (ER) | payer OTHER ==
[~2017-10-11] VITALS: Ht 185.4 cm; Wt 47.9 kg
[2017-10-11 20:01] VITALS: TEMP 36.4; Ht 185.4 cm; Wt 47.9 kg
[2017-10-11] MEDS ORDERED: ALBUTEROL HFA 8 GM INHALER INH ONE (20:15)
[2017-10-11] MEDS ORDERED: CIPR-255 PO (21:07)
[2017-10-11] MEDS ORDERED: CIPROFLOXACIN 500MG HOME PACK PO ONE (21:15)
[2017-10-11 21:17] VITALS: BP 123/94; PULSE 87; O2SAT 95
--- NOTE | 2017-10-11 21:23 | EMERGENCY ROOM VISIT NOTE ---
History Report prepared by Lia: Chito Martino Under the Supervision of: Dr. Brayan Robles M.D. First contact with patient: 20:06 Chief Complaint: CATHETER REPLACEMENT Stated Complaint: JEAN BAPTISTE CATH WON'T DRAIN History of Present Illness The patient is a 72 year old male who presents to the Emergency Room with complaints of a constant inability to drain his catheter that started this morning. He rates his discomfort as a 7/10 in severity. The patient reports he has had a catheter for 6 weeks due to his history of prostate problems. He reports that he was able to drain his catheter this morning, but states that it has not been able to drain since. The patient states that since this morning he has been experiencing abdominal bloating and pain. He reports that on his way to the ED, his catheter drained a small amount. The patient states that his abdominal pain is not as severe now as it was earlier today. He reports that he has had similar symptoms in the past. The patient denies LOC, headache, fevers, chills, diaphoresis, visual changes, neck pain, chest pain, breathing difficulties, nausea, vomiting, back pain, melena, hematochezia, numbness, weakness, lymphadenopathy, rash, or other complaints. The patient reports a history of a UTI. Source of History: patient Onset: this morning Position: other (global) Symptom Intensity: 7/10 Quality: other (inability to drain) Timing: constant Associated Symptoms: + abdominal pain Review of Systems See HPI for pertinent positives and negatives. A total of ten systems were reviewed and were otherwise negative. Past Medical & Surgical Medical Problems: (1) Benign hypertension (2) COPD (chronic obstructive pulmonary disease) (3) Multiple orthopedic surgeries (4) Pneumonia (5) Syncope (6) Syncope Family History Diabetes mellitus Heart disease Hypertension Social History Smoking Status: Current Every Day Smoker Alcohol Use: occasionally Marital Status: single Housing Status: lives with friends Occupation Status: retired Current/Historical Medications Scheduled Aspirin (Aspirin Low Dose), 81 MG PO QD@1200 Budesonide/Formoterol Fumarate (Symbicort 160/4.5 Inhaler ), 1 PUFF INH BID Ciprofloxacin Hcl (Cipro), 500 MG PO BID Lisinopril (Lisinopril), 5 MG PO QD@1200 Tiotropium [place] (Spiriva Handihaler), 1 CAP INH QAM Trimethoprim/Sulfamethoxazole (Bactrim 400MG/80MG), 1 TAB PO Q12H Scheduled PRN Albuterol Hfa (Ventolin Hfa), 2 PUFFS INH QID PRN for Wheezing Allergies Coded Allergies: No Known Allergies (Verified , 09/19/17) Physical Exam Vital Signs Date Time Temp Pulse Resp B/P (MAP) Pulse Ox O2 Delivery O2 Flow Rate FiO2 10/11/17 21:17 87 18 123/94 95 Room Air 10/11/17 20:01 36.4 97 18 129/88 96 Room Air Physical Exam GENERAL: Awake, alert, mildly uncomfortable appearing, in no distress HENT: Normocephalic, atraumatic. Oropharynx unremarkable. EYES: Normal conjunctiva. Sclera non-icteric. NECK: Supple. No nuchal rigidity. FROM. No masses. RESPIRATORY: Clear to auscultation. A few scattered wheezes. CARDIAC: Normal rate. Normal rhythm. No murmurs. No rubs. Extremities warm and well perfused. Pulses equal. No JVD. GI: Soft, non-distended. Mild suprapubic tenderness to palpation. No rebound or guarding. No masses. RECTAL: Deferred. MUSCULOSKELETAL: Atraumatic. Chest examination reveals no tenderness. The back is symmetrical on inspection without obvious abnormality. There is no CVA tenderness to palpation. No joint edema. LOWER EXTREMITIES: Calves are equal size bilaterally and non-tender. No edema. No discoloration. NEURO: Normal sensorium. No sensory or motor deficits noted. SKIN: No rash or jaundice noted. : Normal male genitalia. Jean Baptiste catheter in place. Medical Decision & Procedures Laboratory Results Test 10/11/17 20:20 Urine Color YELLOW Urine Appearance CLEAR (CLEAR) Urine pH 7.5 (4.5-7.5) Urine Specific [place] 1.012 (1.000-1.030) Urine Protein NEG (NEG) Urine Glucose (UA) NEG (NEG) Urine Ketones NEG (NEG) Urine Occult Blood NEG (NEG) Urine Nitrite POS (NEG) Urine Bilirubin NEG (NEG) Urine Urobilinogen NEG (NEG) Urine Leukocyte Esterase LARGE (NEG) Urine WBC (Auto) >30 /hpf (0-5) Urine RBC (Auto) 0-4 /hpf (0-4) Urine Hyaline Casts (Auto) 0 /lpf (0-5) Urine Epithelial Cells (Auto) 0-5 /lpf (0-5) Urine Bacteria (Auto) NEG (NEG) Urine Pathogenic Casts /lpf (0) Laboratory results reviewed by me Medications Administered Medications (Trade) Dose Ordered Sig/Emy Route Start Time Stop Time Status Last Admin Dose Admin Albuterol (Ventolin Hfa Inhaler) 2 puffs NOW ONCE INH 10/11/17 20:15 10/11/17 20:16 DC 10/11/17 20:28 2 PUFFS Ciprofloxacin (Cipro 500MG Home Pack) 1 homepack UD ONCE PO 10/11/17 21:15 10/11/17 21:16 DC 10/11/17 21:05 1 HOMEPACK ED Course 2002: The patient was evaluated in room B04B. A complete history and physical exam was performed. 2014: Ordered Albuterol 2 puffs INH. 2101: I reevaluated the patient. Discussed results and discharge instructions: He verbalized understanding and agreement. The patient is ready for discharge. 2114: Ordered Ciprofloxacin 1 homepack PO. Medical Decision Triage Nursing notes reviewed. The patient's presentation and history were concerning for Abdominal pain and malfunctioning Jean Baptiste catheter. The patient was evaluated. He has some now draining from his catheter. He still has abdominal discomfort. The patient notes a history of his catheter becoming clogged. [facility] Differential includes infection, catheter malfunction, catheter dislodgment, renal issues, as well as others. His original catheter was removed and a new catheter was placed. He drained over 600 mL of urine. His urinalysis was concerning for infection his prior cultures were reviewed. Based upon his prior ear infections Cipro was chosen. He has tolerated this in the past. He has a culture pending on this urinalysis. The patient was also given albuterol MDI as he states his was out. He did have some wheezing. He has a history of COPD. He did take 2 puffs here in the Emergency Room and was doing well. He was much more relaxed and feeling somewhat better after his bladder was drained. He will follow-up as an outpatient. If he has any problems he will come back. I gave my usual and customary discussion regarding this issue. By the evaluation outlined above other emergent etiologies such as those listed in the differential, as well as others, were deemed relatively unlikely. The patient was educated about the findings as listed above. All questions were answered and the patient was pleased with the treatment. Return instructions were outlined and the patient was discharged in stable condition. The patient was referred to his PCP and urologist for follow-up for a recheck of the current condition. Medication Reconcilliation Current Medication List: was personally reviewed by me Blood Pressure Screening Patient's blood pressure: Normal blood pressure Impression Primary Impression: Urinary retention Additional Impressions: Malfunction of indwelling urinary catheter UTI (urinary tract infection) Scribe Attestation The scribe's documentation has been prepared under my direction and personally reviewed by me in its entirety. I confirm that the note above accurately reflects all work, treatment, procedures, and medical decision making performed by me. Departure Information Dispostion Home / Self-Care Prescriptions Ciprofloxacin Hcl (CIPRO) 500 Mg Tab 500 MG PO BID, #10 TAB Prov: Brayan Robles MD 10/11/17 Referrals Tyrone Kennedy D.OGabriel (PCP) Forms HOME CARE DOCUMENTATION FORM, IMPORTANT VISIT INFORMATION Patient Instructions My [facility] Additional Instructions Continue current medications. Care for the catheter as discussed. Do not pull on the catheter. Use the leg bag during the day and the large bag at night when you are sleeping. Drain the bag frequently. Do not let it fill completely. Ciprofloxacin(Cipro) 500mg: Take one pill twice daily for 5 days for your urine infection. All antibiotics can cause diarrhea. If this occurs and you feel worse or it does not resolve in 1-2 days follow up with your doctor or return to the Emergency Department as this could be signs of serious underlying problems. If you experience any pain in your tendons or any tendon injury return to the ER for re-evaluation. Any medication can cause an allergic reaction, stop the pills immediately and return to the ER for rash, hives, breathing difficulties, or swelling. Acetaminophen(Tylenol) may be used for fever or pain. Use 1000mg every six hours as needed. Avoid using more than 4000mg in a 24 hour period. Rest and drink plenty of fluids. Continue current medications. Return to the ER immediately for worsening or persistent abdominal pain, vomiting, fevers, back or flank pain, catheter problems, worsening of your condition, or as needed. Follow up with your primary physician within 2-3 days for a recheck of the current condition. Problem Qualifiers
== END 2017-10-11 21:32 | disposition home or self-care (01) ==
LOC: C.EDB 19:54
DX: R33.9 Retention of urine, unspecified (principal); T83.018A Breakdown (mechanical) of other urinary catheter, initial encounter; N39.0 Urinary tract infection, site not specified; X58.XXXA Exposure to other specified factors, initial encounter; I10 Essential (primary) hypertension; J44.9 Chronic obstructive pulmonary disease, unspecified; Z83.3 Family history of diabetes mellitus; Z82.49 Family history of ischemic heart disease and other diseases of the circulatory system; F17.200 Nicotine dependence, unspecified, uncomplicated; Z79.82 Long term (current) use of aspirin

== ENCOUNTER 2017-11-17 19:43 | Emergency (ER) | payer OTHER ==
[~2017-11-17] VITALS: Ht 185.4 cm; Wt 50.0 kg
[~2017-11-17 19:43] MED LIST changes: +CIPR-255 PO
[2017-11-17 19:52] VITALS: Ht 185.4 cm; Wt 50.0 kg
[2017-11-17] MEDS ORDERED: ALBUTEROL HFA 8 GM INHALER INH STA (19:54)
[2017-11-17] MEDS ORDERED: ALBUT/IPRATROP 3MG/0.5MG NEB 3 ML VIAL INH STA (19:54)
[2017-11-17] MEDS ORDERED: CIPROFLOXACIN 500MG HOME PACK PO STA (21:01)
[2017-11-17] MEDS ORDERED: CIPR-255 PO (21:04)
--- NOTE | 2017-11-17 21:04 | EMERGENCY ROOM VISIT NOTE ---
History First contact with patient: 19:50 Chief Complaint: CATHETER REPLACEMENT Stated Complaint: JEAN BAPTISTE CATH CLOGGED History of Present Illness The patient is a 72 year old male who presents to the Emergency Room with complaints of "Jean Baptiste catheter clogged". The patient states that he has a history of prostate issues of which requires chronic Jean Baptiste catheter placement. He states that around noontime today the Jean Baptiste catheter became clogged and has not been able to empty urine. He states that he has no other symptoms other than some suprapubic abdominal pain. He does have some shortness of breath which he states is chronic, but when he has a blocked catheter it seems to make a little bit worse. There is no fever, chills, chest pain or urinary burning. He states that the current catheter has been in place 1.5 months. He denies any back pain. Review of Systems A complete 6-point Review of Systems was discussed with the patient, with pertinent positives and negatives listed in the History of Present Illness. All remaining Review of Systems questions can be considered negative unless otherwise specified. Past Medical/Surgical History Medical Problems: (1) Benign hypertension (2) COPD (chronic obstructive pulmonary disease) (3) Multiple orthopedic surgeries (4) Pneumonia (5) Syncope (6) Syncope Family History Diabetes mellitus Heart disease Hypertension Social History Smoking Status: Current Every Day Smoker Alcohol Use: occasionally Marital Status: single Housing Status: lives with friends Occupation Status: retired Current/Historical Medications Scheduled Aspirin (Aspirin Low Dose), 81 MG PO QD@1200 Budesonide/Formoterol Fumarate (Symbicort 160/4.5 Inhaler ), 1 PUFF INH BID Ciprofloxacin Hcl (Cipro), 500 MG PO BID Ciprofloxacin Hcl (Cipro), 500 MG PO BID Lisinopril (Lisinopril), 5 MG PO QD@1200 Tiotropium [place] (Spiriva Handihaler), 1 CAP INH QAM Trimethoprim/Sulfamethoxazole (Bactrim 400MG/80MG), 1 TAB PO Q12H Scheduled PRN Albuterol Hfa (Ventolin Hfa), 2 PUFFS INH QID PRN for Wheezing Physical Exam Vital Signs Date Time Temp Pulse Resp B/P (MAP) Pulse Ox O2 Delivery O2 Flow Rate FiO2 11/17/17 21:21 92 22 114/77 95 11/17/17 20:55 92 22 114/77 95 Room Air 11/17/17 19:52 113 28 168/108 95 Room Air Physical Exam VITAL SIGNS - Vital signs and nursing notes were reviewed. Initially the patient was tachycardic, and had a high respiratory rate and elevated blood pressure. This was reevaluated and found to improve. GENERAL -72-year-old male appearing his stated age who is in no acute distress. Communicates well with provider and answers questions appropriately. SKIN - Without rashes. No meningeal or petechial rash. HEAD - NC/AT. HEART and LUNG: Regular rate and rhythm, minimal wheezing noted bilaterally. ABDOMEN -suprapubic abdominal tenderness noted. No CVA tenderness. Medical Decision & Procedures Laboratory Results Test 11/17/17 20:20 Urine Color YELLOW Urine Appearance CLEAR (CLEAR) Urine pH 6.5 (4.5-7.5) Urine Specific [place] 1.015 (1.000-1.030) Urine Protein NEG (NEG) Urine Glucose (UA) NEG (NEG) Urine Ketones NEG (NEG) Urine Occult Blood 2+ (NEG) Urine Nitrite POS (NEG) Urine Bilirubin NEG (NEG) Urine Urobilinogen NEG (NEG) Urine Leukocyte Esterase LARGE (NEG) Urine WBC (Auto) 10-30 /hpf (0-5) Urine RBC (Auto) 10-30 /hpf (0-4) Urine Hyaline Casts (Auto) 1-5 /lpf (0-5) Urine Epithelial Cells (Auto) 0-5 /lpf (0-5) Urine Bacteria (Auto) 1+ (NEG) Medications Administered Medications (Trade) Dose Ordered Sig/Emy Route Start Time Stop Time Status Last Admin Dose Admin Albuterol/ Ipratropium (Duoneb) 3 ml NOW STAT INH 11/17/17 19:54 11/17/17 19:58 DC 11/17/17 20:28 3 ML Albuterol (Ventolin Hfa Inhaler) 1 puffs NOW STAT INH 11/17/17 19:54 11/17/17 19:58 DC 11/17/17 20:28 60 PUFFS Ciprofloxacin (Cipro 500MG Home Pack) 1 homepack UD STAT PO 11/17/17 21:01 11/17/17 21:02 DC 11/17/17 21:13 1 HOMEPACK Medical Decision Patient was seen and evaluated as above in room A4. He has a history of UTIs and chronic indwelling Jean Baptiste. Review was performed of nursing notes and vital signs. After obtaining a thorough history and physical examination the above work up was performed. The Jean Baptiste catheter was replaced. Patient was able to adequately drain the bladder. UA is consistent with that of a UTI. Review was had of previous culture results. I will start Cipro and await culture. Dosing was provided identical to previous. He notes he is feeling much better after the Jean Baptiste catheter was placed. He was given a breathing treatment noting his previous emphysema history. He was feeling better. He was given a DuoNeb and then an albuterol inhaler. He appears stable for outpatient management. No evidence of pyelonephritis or sepsis. Case was discussed with the attending physician. He is to return with worsening. He is to call his urologist and family doctor to schedule follow-up. The patient was educated upon management, had questions answered prior to discharge, and was discharged home in good condition. Case was discussed with the attending physician. In the evaluation and treatment of this patient the following differential diagnoses were entertained: UTI, pyelonephritis, among others. Impression Primary Impression: Complication of catheter Additional Impression: UTI (urinary tract infection) Departure Information Dispostion Home / Self-Care Condition GOOD Prescriptions Ciprofloxacin Hcl (CIPRO) 500 Mg Tab 500 MG PO BID for 5 Days, #10 TAB Prov: Flavio Nix PA-C 11/17/17 Referrals Tyrone Kennedy,D.OGabriel (PCP) Patient Instructions My [facility] Additional Instructions You have been treated in the Emergency Department for a Urinary Tract Infection (UTI) and complications of her Jean Baptiste catheter. You have been prescribed Cipro to be taken every 12 hours with the remainder for pickup at your pharmacy. This is an antibiotic. All antibiotics have the potential to cause diarrhea. Stop this medication and contact a medical provider if you were to develop any significant adverse side effects including: wheezing, shortness of breath, passing out, vomiting, or a diffuse rash. Always take antibiotics as directed and COMPLETE the ENTIRE course regardless of the improvement of your symptoms. Please call your family doctor and urologist to schedule follow-up regarding your UTI and catheter complications. Return to the emergency department if your symptoms worsen despite treatment course outlined above. Drink plenty of water and stay well hydrated. As with any trip to the Emergency Department, you should follow-up with your Primary Care Provider from today's visit. Return to the emergency department if your symptoms persist despite treatment plan outlined above or if the following symptoms occur: increased fevers, chills , low back pain, nausea/vomiting, or blood in your urine. Problem Qualifiers
[2017-11-17 21:21] VITALS: BP 114/77; PULSE 92; O2SAT 95
--- NOTE | 2017-11-21 14:50 | Pharmacy Progress Note ---
ED Pharmacist Culture FollowUp Date of Service: Nov 21, 2017. Called patient regarding urine culture. Patient reports his urine is darker today. Denied other urinary symptoms. Counseled that he should stop taking the ciprofloxacin and switch to cephalexin. Patient acknowledged understanding. Patient reports he does not believe he has ever been prescribed cephalexin. Counseled to monitor for allergic reaction, including but not limited to SOB and rash. Counseled to return to ED immediately were he to experience acute SOB. Prescription for cephalexin 500 mg po BID x10 days called to [facility] at the patient's request. Case discussed with Flavio Nix PA-C, who is the prescribing provider.
== END 2017-11-17 21:15 | disposition home or self-care (01) ==
LOC: C.EDB 19:44 → C.EDA 21:15
DX: N39.0 Urinary tract infection, site not specified (principal); T83.091A Other mechanical complication of indwelling urethral catheter, initial encounter; Y73.2 Prosthetic and other implants, materials and accessory gastroenterology and urology devices associated with adverse incidents; J44.9 Chronic obstructive pulmonary disease, unspecified; I10 Essential (primary) hypertension; Z79.82 Long term (current) use of aspirin; Z96.0 Presence of urogenital implants; F17.200 Nicotine dependence, unspecified, uncomplicated; Z87.442 Personal history of urinary calculi

== ENCOUNTER 2017-12-14 04:50 | Emergency (ER) | payer OTHER ==
[~2017-12-14] VITALS: Ht 185.4 cm; Wt 48.4 kg
[2017-12-14 04:52] VITALS: TEMP 36.7; Ht 185.4 cm; Wt 48.4 kg
--- NOTE | 2017-12-14 05:10 | EMERGENCY ROOM VISIT NOTE ---
History Report prepared by Lia: Damaso Martin Under the Supervision of: Dr. Jill Garcia D.O. First contact with patient: 04:59 Chief Complaint: CATHETER REPLACEMENT Stated Complaint: JEAN BAPTISTE CATH CLOGGED History of Present Illness The patient is a 72 year old male who presents to the Emergency Room with complaints of persistent blocked Jean Baptiste catheter since 2100 last night. He reports suprapubic abdominal pain. He currently rates his pain a 7/10 in severity. He states that he is unable to void from his catheter. The patient has a history of blocked Jean Baptitse catheters. He has been seen in the ED multiple times for blocked Jean Baptiste catheter. He has a history of severe COPD. He continues to smoke. Source of History: patient Onset: 2099 last night Position: abdomen Symptom Intensity: 710 Timing: other (persistent) Associated Symptoms: + urinary symptoms (unable to void) Review of Systems See HPI for pertinent positives & negatives. A total of 6 systems reviewed and were otherwise negative. Past Medical & Surgical Medical Problems: (1) Benign hypertension (2) Complication of catheter (3) COPD (chronic obstructive pulmonary disease) (4) Encounter for smoking cessation counseling (5) Hematuria (6) Malfunction of indwelling urinary catheter (7) Multiple orthopedic surgeries (8) Pneumonia (9) Syncope (10) Syncope (11) Urinary retention (12) Urinary tract infection Family History Diabetes mellitus Heart disease Hypertension Social History Smoking Status: Current Every Day Smoker Alcohol Use: occasionally Marital Status: single Housing Status: lives with friends Occupation Status: retired Current/Historical Medications Scheduled Aspirin (Aspirin Low Dose), 81 MG PO QD@1200 Budesonide/Formoterol Fumarate (Symbicort 160/4.5 Inhaler ), 1 PUFF INH BID Ciprofloxacin Hcl (Cipro), 500 MG PO BID Ciprofloxacin Hcl (Cipro), 500 MG PO BID Ciprofloxacin Hcl (Cipro), 500 MG PO BID Lisinopril (Lisinopril), 5 MG PO QD@1200 Tiotropium [place] (Spiriva Handihaler), 1 CAP INH QAM Trimethoprim/Sulfamethoxazole (Bactrim 400MG/80MG), 1 TAB PO Q12H Scheduled PRN Albuterol Hfa (Ventolin Hfa), 2 PUFFS INH QID PRN for Wheezing Allergies Coded Allergies: No Known Allergies (Verified , 09/19/17) Physical Exam Vital Signs Date Time Temp Pulse Resp B/P (MAP) Pulse Ox O2 Delivery O2 Flow Rate FiO2 12/14/17 04:52 36.7 92 24 125/81 93 Room Air Physical Exam General: Appears extremely short of breath. Heart: Regular rate and rhythm. There is a normal S1 and S2 with no murmurs, clicks, or gallops appreciated. Lungs: Inspiratory and expiratory wheezing bilaterally. Abdomen: Soft, suprapubic abdominal pain and suprapubic fullness, nondistended, with good bowel sounds. There are no palpable pulsatile masses or hepatosplenomegaly. There is no guarding, rigidity, or rebound noted. Extremities: No evidence of cyanosis, clubbing, or edema. There are easily palpable peripheral pulses. Skin: warm and dry with good turgor and no rashes. Medical Decision & Procedures Laboratory Results Test 12/14/17 05:50 Urine Color YELLOW Urine Appearance CLOUDY (CLEAR) Urine pH 6.5 (4.5-7.5) Urine Specific [place] 1.014 (1.000-1.030) Urine Protein NEG (NEG) Urine Glucose (UA) NEG (NEG) Urine Ketones NEG (NEG) Urine Occult Blood 2+ (NEG) Urine Nitrite POS (NEG) Urine Bilirubin NEG (NEG) Urine Urobilinogen NEG (NEG) Urine Leukocyte Esterase LARGE (NEG) Urine WBC (Auto) >30 /hpf (0-5) Urine RBC (Auto) 10-30 /hpf (0-4) Urine Hyaline Casts (Auto) 5-10 /lpf (0-5) Urine Epithelial Cells (Auto) 0-5 /lpf (0-5) Urine Bacteria (Auto) NEG (NEG) Laboratory results per my review. Medications Administered Medications (Trade) Dose Ordered Sig/Emy Route Start Time Stop Time Status Last Admin Dose Admin Albuterol (Ventolin Hfa Inhaler) 2 puffs NOW ONCE INH 12/14/17 05:15 12/14/17 05:16 DC 12/14/17 06:36 60 PUFFS Ciprofloxacin (Cipro Tab) 500 mg NOW STAT PO 12/14/17 06:12 12/14/17 06:13 DC 12/14/17 06:35 500 MG Procedure 0515: Ordered Albuterol 2 puffs INH 0612: Ordered Cipro 500 mg PO ED Course 0500: Past medical records reviewed. The patient was evaluated in room A3. A complete history and physical exam was performed. Patient asked me to give him another albuterol inhaler. 0515: Ordered Albuterol 2 puffs INH. The patient's Jean Baptiste catheter was replaced 0552: I reassessed the patient at this time. He feels better. He had put out 1 liter of urine. His urine was was sent for UA and culture. 0605: Review of patient EMR shows multiple previous urinary cultures. 0612: Ordered Cipro 500 mg PO 0648: I reassessed the patient at this time. He is feeling better and resting comfortably. I discussed the results and treatment plan with the patient. I answered all pertaining questions that he had. He expressed understanding and verbalized agreement. The patient will be discharged home. Medical Decision The patient is a 72 year old male who presents to the ED with blocked Jean Baptiste catheter. Differential diagnosis includes UTI, blocked Jean Baptiste catheter, or Jean Baptiste catheter dysfunction. Lab results showed: Urine: 2+ blood. Positive Nitrite. Large leukocyte esterase. WBC>30. RBC 10-30. This is a 72-year-old male patient presents to the emergency department with a blocked Jean Baptiste catheter. Jean Baptiste catheter was replaced. Urinalysis was positive for infection. It was sent for culture. The patient was given his initial dose of Cipro. Upon presentation, the patient was moderately short of breath and requesting a new albuterol inhaler. We gave this to him and his respiratory status seemed to improve. Medication Reconcilliation Current Medication List: was personally reviewed by me Blood Pressure Screening Patient's blood pressure: Normal blood pressure Impression Primary Impression: Complication, blocked Jean Baptiste catheter Additional Impression: UTI (urinary tract infection) Scribe Attestation The scribe's documentation has been prepared under my direction and personally reviewed by me in its entirety. I confirm that the note above accurately reflects all work, treatment, procedures, and medical decision making performed by me. Departure Information Dispostion Home / Self-Care Prescriptions Ciprofloxacin Hcl (CIPRO) 500 Mg Tab 500 MG PO BID, #20 TAB Prov: Jill Garcia D.O. 12/14/17 Referrals Tyrone Kennedy D.O. (PCP) Forms HOME CARE DOCUMENTATION FORM, IMPORTANT VISIT INFORMATION Patient Instructions My [facility] Additional Inst[facility]. If your breathing worsens, return to the ER. Problem Qualifiers Primary Impression: Complication, blocked Jean Baptiste catheter Encounter type: initial encounter Qualified Codes: T83.091A - Other mechanical complication of indwelling urethral catheter, initial encounter Additional Impression: UTI (urinary tract infection) Urinary tract infection type: catheter-associated UTI Indwelling urinary catheter type: indwelling urethral catheter Encounter type: initial encounter Qualified Codes: T83.511A - Infection and inflammatory reaction due to indwelling urethral catheter, initial encounter; N39.0 - Urinary tract infection, site not specified
[2017-12-14] MEDS ORDERED: ALBUTEROL HFA 8 GM INHALER INH ONE (05:15)
[2017-12-14] MEDS ORDERED: CIPROFLOXACIN 500 MG TAB PO STA (06:12)
[2017-12-14] MEDS ORDERED: CIPR1TAB10 PO (06:21)
[2017-12-14 07:36] VITALS: BP 121/79; PULSE 80; O2SAT 95
--- NOTE | 2017-12-16 15:11 | Pharmacy Progress Note ---
ED Pharmacist Culture FollowUp Date of Service: December 16, 2017. Cath urine cx is growing > 100,000 CFU/mL CoN Staph. Pt was seen for obstructed An cath as well as suprapubic pain. An cath was replaced. He was dx with complicated UTI and discharged w/ Rx for Cipro 500mg BID x 10 days Sensitivities to Cipro are not reported by lab. Antibiogram consulted. Up to 39% of CoN Staph are resistant to Cipro. Results reviewed w/ Dr Aparicio, pt will be instructed to stop Cipro and begin Macrobid 100mg PO BID x 10 days. Contacted pt via phone. Explained he needed to stop taking the Cipro and begin Macrobid based upon the cx results. He asked I call in Rx to [facility] which I did do for him.
== END 2017-12-14 07:37 | disposition home or self-care (01) ==
LOC: C.EDB 04:51 → C.EDA 07:37
DX: T83.091A Other mechanical complication of indwelling urethral catheter, initial encounter (principal); T83.511A Infection and inflammatory reaction due to indwelling urethral catheter, initial encounter; Y84.6 Urinary catheterization as the cause of abnormal reaction of the patient, or of later complication, without mention of misadventure at the time of the procedure; N39.0 Urinary tract infection, site not specified; J44.9 Chronic obstructive pulmonary disease, unspecified; I10 Essential (primary) hypertension; F17.210 Nicotine dependence, cigarettes, uncomplicated; Z79.82 Long term (current) use of aspirin; Z79.899 Other long term (current) drug therapy